=== PATIENT | female | born 1985 | race Caucasian/White ===

== ENCOUNTER 2019-09-25 19:42 | Emergency (ER) | payer OTHER, SELFPAY ==
--- OUTSIDE RECORDS SUMMARY | 2019-09-25 19:45 | XMS REPORT ---
:1985 Author Organization eClinicalWorks Care Team Providers Name Role Phone Ingrid Kamara Provider Role Unavailable Allergies No Known Allergies Problems Problem Type Condition Code Onset Dates Condition Status Problem Snoring R06.83 Active Problem Fatigue, unspecified type R53.83 Active Problem Morbid obesity E66.01 Active Problem Body mass index (BMI) of 40.0-44.9 Z68.41 Active in adult Problem control counseling Z30.09 Active Medications No Known Medications Results No Known Results Summary Purpose eClinicalWorks Submission
--- OUTSIDE RECORDS SUMMARY | 2019-09-25 19:45 | XMS REPORT ---
:1985 Author Organization [employer]Works Care Team Providers Name Role Phone Ingrid Kamara Provider Role Unavailable Allergies, Adverse Reactions, Alerts Substance Reaction Event Type N.K.D.A. Info Not Available Non Drug Allergy Problems Problem Type Condition Code Onset Dates Condition Status Problem Morbid obesity E66.01 Active Problem control counseling Z30.09 Active Problem Fatigue, unspecified type R53.83 Active Assessment Acute pharyngitis, unspecified J02.9 Active etiology Assessment URI, acute J06.9 Active Problem Snoring R06.83 Active Problem Skin lesion L98.9 Active Problem Hypercholesterolemia E78.00 Active Problem Vitamin D deficiency E55.9 Active Problem Dietary surveillance and counseling Z71.3 Active Problem Body mass index (BMI) of 40.0-44.9 Z68.41 Active in adult Problem Body mass index (BMI) of 45.0-49.9 Z68.42 Active in adult Problem Anemia, unspecified type D64.9 Active Medications Medication Code System Code Instructions Start Date End Date Status Dosage Augmentin [facility] [id number] 875-125 MG Orally April 26, May 06, Active 1 tablet every 12 hrs 2018 2018 Results Name Result Date Reference Range Unit Abnormality Flag STREP A RAPID ----Result Negative [id number] Summary Purpose eClinicalWorks Submission
--- OUTSIDE RECORDS SUMMARY | 2019-09-25 19:45 | XMS REPORT ---
:1985 Author Organization eClinicalWorks Care Team Providers Name Role Phone Ingrid Kamara Provider Role Unavailable Allergies, Adverse Reactions, Alerts Substance Reaction Event Type N.K.D.A. Info Not Available Non Drug Allergy Problems Problem Type Condition Code Onset Dates Condition Status Problem Snoring R06.83 Active Problem Fatigue, unspecified type R53.83 Active Problem Morbid obesity E66.01 Active Assessment Well adult exam Z00.00 Active Problem Body mass index (BMI) of 40.0-44.9 Z68.41 Active in adult Problem control counseling Z30.09 Active Medications No Known Medications Results No Known Results Summary Purpose [employer]Clinical[employer] Submission
--- OUTSIDE RECORDS SUMMARY | 2019-09-25 19:45 | XMS REPORT ---
:1985 Author Organization eClinicalWorks Care Team Providers Name Role Phone Anh Ingrid Provider Role Unavailable Allergies, Adverse Reactions, Alerts Substance Reaction Event Type N.K.D.A. Info Not Available Non Drug Allergy Problems Problem Type Condition Code Onset Dates Condition Status Problem Morbid obesity E66.01 Active Problem control counseling Z30.09 Active Problem Fatigue, unspecified type R53.83 Active Problem Skin lesion L98.9 Active Problem Hypercholesterolemia E78.00 Active Problem Vitamin D deficiency E55.9 Active Problem Dietary surveillance and counseling Z71.3 Active Problem Body mass index (BMI) of 40.0-44.9 Z68.41 Active in adult Problem Body mass index (BMI) of 45.0-49.9 Z68.42 Active in adult Problem Anemia, unspecified type D64.9 Active Assessment Body mass index (BMI) of 40.0-44.9 Z68.41 Active in adult Assessment Morbid obesity E66.01 Active Assessment Dietary surveillance and counseling Z71.3 Active Assessment Vitamin D deficiency E55.9 Active Assessment Anemia, unspecified type D64.9 Active Assessment Skin lesion L98.9 Active Assessment Hypercholesterolemia E78.00 Active Problem Snoring R06.83 Active Medications Medication Code Code Instructions Start End Status Dosage System Date Date Vitamin D [facility] [id number] UNIT December 20March Active 1 capsule (Ergocalcifero Orally Once per 2019 03, l) week 2019 Results No Known Results Summary Purpose eClinicalWorks Submission
--- OUTSIDE RECORDS SUMMARY | 2019-09-25 19:45 | XMS REPORT ---
:1985 Author Organization eClinicalWorks Care Team Providers Name Role Phone Ingrid Kamara Provider Role Unavailable Allergies No Known Allergies Problems Problem Type Condition Code Onset Dates Condition Status Problem Morbid obesity E66.01 Active Problem control counseling Z30.09 Active Problem Fatigue, unspecified type R53.83 Active Problem Snoring R06.83 Active Problem Skin lesion L98.9 Active Problem Hypercholesterolemia E78.00 Active Problem Vitamin D deficiency E55.9 Active Problem Dietary surveillance and counseling Z71.3 Active Problem Body mass index (BMI) of 40.0-44.9 Z68.41 Active in adult Problem Body mass index (BMI) of 45.0-49.9 Z68.42 Active in adult Problem Anemia, unspecified type D64.9 Active Medications No Known Medications Results No Known Results Summary Purpose eClinicalWorks Submission
--- OUTSIDE RECORDS SUMMARY | 2019-09-25 19:45 | XMS REPORT ---
:1985 Author Organization eClinicalWorks Care Team Providers Name Role Phone Ingrid Kamara Provider Role Unavailable Allergies, Adverse Reactions, Alerts Substance Reaction Event Type N.K.D.A. Info Not Available Non Drug Allergy Problems Problem Type Condition Code Onset Dates Condition Status Assessment Fatigue, unspecified type R53.83 Active Assessment Body mass index (BMI) of 40.0-44.9 Z68.41 Active in adult Assessment Snoring R06.83 Active Assessment control counseling Z30.09 Active Problem Snoring R06.83 Active Problem Fatigue, unspecified type R53.83 Active Problem Morbid obesity E66.01 Active Assessment Morbid obesity E66.01 Active Problem Body mass index (BMI) of 40.0-44.9 Z68.41 Active in adult Problem control counseling Z30.09 Active Medications No Known Medications Results Name Result Date Reference Range Unit Abnormality Flag TEST URINE ----RESULTS Negative [id number] Summary Purpose [facility] Submission
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
[2019-09-25] MEDS ORDERED: KETOROLAC 30 MG/ML INJ ONE (20:28)
[2019-09-25 21:04] VITALS: BP 111/60; TEMP 97.7; O2SAT 99
== END 2019-09-25 20:56 | disposition home or self-care (01) ==
LOC: ER 19:42
DX: M79.10 Myalgia, unspecified site (principal); V43.52XA Car driver injured in collision with other type car in traffic accident, initial encounter; Y93.89 Activity, other specified; Y92.410 Unspecified street and highway as the place of occurrence of the external cause
CPT/HCPCS: 96372; 99283

== ENCOUNTER 2023-04-30 16:16 | Emergency (ER) | payer SELFPAY ==
--- OUTSIDE RECORDS SUMMARY | 2023-04-30 16:21 | XMS REPORT | Continuity of Care Document ---
:[address] [facility] t Address [address] [place] [address] Care Team Providers Name Role Phone Radha Campos MD Primary Care Physician Ingrid Kamara Attending Clinician Unavailable Modesta Attending Clinician Unavailable GC_SWHAOMC_Black_D Attending Clinician Unavailable GC_SWHATBIC_Black_D Attending Clinician Unavailable Janelle Delarosa Attending Clinician Unavailable KYLE WINTER Attending Clinician Unavailable Kyle Winter MD Attending Clinician TAMMI LIU Attending Clinician Unavailable Tammi Liu MD Attending Clinician GC_SWHAOMC_Ball_C Attending Clinician Unavailable Doctor Unassigned, [place] Attending Clinician Unavailable Janelle Delarosa Attending Clinician [phone] Shay Dominguez DO Attending Clinician Jero Bain MD Attending Clinician Radha Campos MD Attending Clinician Chloe Almaraz RN Attending Clinician Unavailable Only, Ang Db Test Attending Clinician Unavailable Taz GARCIA, Kailash Attending Clinician KAILASH MORGAN Attending Clinician Unavailable IZZY JACOBS Attending Clinician Unavailable Lab, Adc Fam Pob I Attending Clinician Unavailable Rod BRIM STIFFENER, Jerson Attending Clinician JERSON VELASCO Attending Clinician Unavailable BERNABE CHAU Attending Clinician Unavailable KYLE WINTER Admitting Clinician Unavailable Modesta Admitting Clinician Unavailable GC_SWHAOMC_Black_D Admitting Clinician Unavailable GC_SWHATBIC_Black_D Admitting Clinician Unavailable Janelle Delarosa Admitting Clinician Unavailable Kyle Winter MD Admitting Clinician TAMMI LIU Admitting Clinician Unavailable Tammi Liu MD Admitting Clinician GC_SWHAOMC_Ball_C Admitting Clinician Unavailable BERNABE CHAU Admitting Clinician Unavailable Payers Payer Name Policy Type Policy Effective Date Expiration Date Sour ce Number [employer] [id number] 2022 OUT OF NETWORK 00:00:00 [employer] (EPO) [id number] 2021 00:00:00 [facility] [id number] 2020 MEDICARE 00:00:00 SUPPLEMENT MULTIPLAN GENERIC [id number] 2020 00:00:00 Blue [employer] and C1 [id number] 2018 Common S pirit Blue Shield 00:00:00 [facility] CIGNA GENERIC [id number] 2018 00:00:00 BCBS [facility] [id number] 2018 00:00:00 00:00:00 Problems Condition Condition Condition Status Onset Resolution Last Treating Co mments Source Name Details Category Date Date Treatment Clinician Date COVID-19 COVID-19 Disease Active Metho di 07-07 00:00: Hospita 00 l Morbid Morbid Disease Active Univers obesity obesity 1-15 [place] index 00 [place] dical of of Branch 40.0-49.9 40.0-49.9 Cholecysti Cholecysti Disease Active U nivers tis, acute tis, acute 1-14 it y of with with 00:00: [place] cholelithi cholelithi 00 Me dical asis asis Branch [id number] Morbid Problem Active Common obesity [facility] [id number] Dietary Problem Active Commo n surveillan Spirit ce and - [facility] counseling [facility] [id number] Other Problem Active Common chronic Spirit pain [facility] [id number] Pain in Problem Active Common right knee [facility] [id number] Vitamin D Problem Active Comm on deficiency [facility] [id number] Anemia, Problem Active Commo n unspecifie Spirit d type [facility] [id number] Internal Problem Active Com mon [id number] derangemen Spiri t t of right - [facility] knee [facility] Allergies, Adverse Reactions, Alerts Allergy Allergy Status Severity Reaction(s) Onset Inactive Treating Comm ents Source Name Type Date Date Clinician No Known DA Active U [facility] Allergie 2-27 [facility] s 00:00: Hosp[facility] 00 l of [place] NO KNOWN Drug Active Univers ALLERGIE Class ity of S [facility] Social History Social Habit Start Date Stop Date Quantity Comments Source ASSERTION 2022-03-30 University 00:00:00 [facility] Sex Assigned At [facility] Exposure to Not sure [facility] SARS-CoV-2 [place] [facility] (event) Branch Alcohol intake 2022-11-22 2022-11-22 Current [facility] 00:00:00 00:00:00 non-drinker of [facility] alcohol (finding) Branch Tobacco use and 2018-05-24 2018-05-24 Smokeless tobacco Un iversity of exposure 00:00:00 00:00:00 non-user [facility] Smoking Status Start Date Stop Date Source Unknown if ever smoked [facility] Never smoked tobacco [facility] Medications Ordered Filled Start Stop Current Ordering Indication Dosage Frequency Signature Comments Components Source Medication Medication Date Date Medication? Clinician (SIG) Name Name meloxicam Yes TAKE 1 Method i (MOBIC) 15 7-[address] mg tablet 00:00: MOUTH Hospita 00 DAILY l NEEDED FOR MODERATE PAIN. meloxicam Yes TAKE 1 Method i (MOBIC) 15 7-[address] mg tablet 00:00: MOUTH Hospita 00 DAILY l NEEDED FOR MODERATE PAIN. meloxicam 2021- No 15mg Q24H Take 1 Metho di (MOBIC) 15 6-23 07-20 tablet (15 st mg tablet 00:00: 00:00 mg total) Ho spita 00 :00 by mouth l daily as needed for moderate pain. meloxicam 2021- No 15mg Q24H Take 1 Metho di (MOBIC) 15 6-23 07-20 tablet (15 st mg tablet 00:00: 00:00 mg total) Ho spita 00 :00 by mouth l daily as needed for moderate pain. No known No No known Metho di medications 9-[address] 16:36: s Hospita 22 l Augmentin Augmentin 2019- No Ingrid 1 tablet Common 7-20 [facility] Spirit 00:00: 00:00 - [facility] 00 :00 [facility] Iron 325 Iron 325 No 1{table QD Iron 325 Common (65 Fe) MG (65 Fe) MG t} (65 Fe) MG Spirit - [facility] No known No Univers medications ity [facility] No known No Univers medications ity [facility] No known No Univers medications ity [facility] No known No Univers medications ity [facility] No known No Univers medications ity [facility] No known No Univers medications ity [facility] No [facility] No Univers medications ity [facility] No known No Univers medications ity [facility] No known No Univers medications ity [facility] No known No Univers medications ity [facility] No known No Univers medications ity [facility] doxylamine doxylamine No doxylamine [facility] 10 10 10 Medical mg-pyridoxi mg-pyridoxi mg-pyridox ne (vit B6) ne (vit B6) ine (vit 10 mg 10 mg B6) 10 mg tablet,bhavik tablet,bhavik tablet,del yed release yed release ayed TAKE 2 TAKE 2 release TABLETS BY TABLETS BY TAKE 2 MOUTH EVERY MOUTH EVERY TABLETS BY DAY AT DAY AT MOUTH BEDTIME BEDTIME EVERY DAY AT BEDTIME folic acid folic acid No folic acid [facility] 1 mg tablet 1 mg tablet 1 mg M edical TAKE 1 TAKE 1 tablet TABLET BY TABLET BY TAKE 1 MOUTH EVERY MOUTH EVERY TABLET BY DAY DAY MOUTH EVERY DAY doxylamine doxylamine No doxylamine [facility] 10 10 10 Medical mg-pyridoxi mg-pyridoxi mg-pyridox ne (vit B6) ne (vit B6) ine (vit 10 mg 10 mg B6) 10 mg tablet,bhavik tablet,bhavik tablet,del yed release yed release ayed TAKE 2 TAKE 2 release TABLETS BY TABLETS BY TAKE 2 MOUTH EVERY MOUTH EVERY TABLETS BY DAY AT DAY AT MOUTH BEDTIME BEDTIME EVERY DAY AT BEDTIME folic acid folic acid No folic acid [facility] 1 mg tablet 1 mg tablet 1 mg M edical TAKE 1 TAKE 1 tablet TABLET BY TABLET BY TAKE 1 MOUTH EVERY MOUTH EVERY TABLET BY DAY DAY MOUTH EVERY DAY doxylamine doxylamine No doxylamine [facility] 10 10 10 Medical mg-pyridoxi mg-pyridoxi mg-pyridox ne (vit B6) ne (vit B6) ine (vit 10 mg 10 mg B6) 10 mg tablet,bhavik tablet,bhavik tablet,del yed release yed release ayed TAKE 2 TAKE 2 release TABLETS BY TABLETS BY TAKE 2 MOUTH EVERY MOUTH EVERY TABLETS BY DAY AT DAY AT MOUTH BEDTIME BEDTIME EVERY DAY AT BEDTIME folic acid folic acid No folic acid [facility] 1 mg tablet 1 mg tablet 1 mg M edical TAKE 1 TAKE 1 tablet TABLET BY TABLET BY TAKE 1 MOUTH EVERY MOUTH EVERY TABLET BY DAY DAY MOUTH EVERY DAY doxylamine doxylamine No doxylamine [facility] 10 10 10 Medical mg-pyridoxi mg-pyridoxi mg-pyridox ne (vit B6) ne (vit B6) ine (vit 10 mg 10 mg B6) 10 mg tablet,bhavik tablet,bhavik tablet,del yed release yed release ayed TAKE 2 TAKE 2 release TABLETS BY TABLETS BY TAKE 2 MOUTH EVERY MOUTH EVERY TABLETS BY DAY AT DAY AT MOUTH BEDTIME BEDTIME EVERY DAY AT BEDTIME folic acid folic acid No folic acid [facility] 1 mg tablet 1 mg tablet 1 mg M edical TAKE 1 TAKE 1 tablet TABLET BY TABLET BY TAKE 1 MOUTH EVERY MOUTH EVERY TABLET BY DAY DAY MOUTH EVERY DAY amoxicillin amoxicillin No amoxicilli [facility] 875 mg 875 mg n 875 mg Medical tablet tablet tablet doxylamine doxylamine No doxylamine [facility] 10 10 10 Medical mg-pyridoxi mg-pyridoxi mg-pyridox ne (vit B6) ne (vit B6) ine (vit 10 mg 10 mg B6) 10 mg tablet,bhavik tablet,bhavik tablet,del yed release yed release ayed TAKE 2 TAKE 2 release TABLETS BY TABLETS BY TAKE 2 MOUTH EVERY MOUTH EVERY TABLETS BY DAY AT DAY AT MOUTH BEDTIME BEDTIME EVERY DAY AT BEDTIME folic acid folic acid No folic acid [facility] 1 mg tablet 1 mg tablet 1 mg M edical TAKE 1 TAKE 1 tablet TABLET BY TABLET BY TAKE 1 MOUTH EVERY MOUTH EVERY TABLET BY DAY DAY MOUTH EVERY DAY amoxicillin amoxicillin No amoxicilli [facility] 875 mg 875 mg n 875 mg Medical tablet tablet tablet doxylamine doxylamine No doxylamine [facility] 10 10 10 Medical mg-pyridoxi mg-pyridoxi mg-pyridox ne (vit B6) ne (vit B6) ine (vit 10 mg 10 mg B6) 10 mg tablet,bhavik tablet,bhavik tablet,del yed release yed release ayed TAKE 2 TAKE 2 release TABLETS BY TABLETS BY TAKE 2 MOUTH EVERY MOUTH EVERY TABLETS BY DAY AT DAY AT MOUTH BEDTIME BEDTIME EVERY DAY AT BEDTIME folic acid folic acid No folic acid [facility] 1 mg tablet 1 mg tablet 1 mg M edical TAKE 1 TAKE 1 tablet TABLET BY TABLET BY TAKE 1 MOUTH EVERY MOUTH EVERY TABLET BY DAY DAY MOUTH EVERY DAY amoxicillin amoxicillin No amoxicilli [facility] 875 mg 875 mg n 875 mg Medical tablet tablet tablet doxylamine doxylamine No doxylamine [facility] 10 10 10 Medical mg-pyridoxi mg-pyridoxi mg-pyridox ne (vit B6) ne (vit B6) ine (vit 10 mg 10 mg B6) 10 mg tablet,bhavik tablet,bhavik tablet,del yed release yed release ayed TAKE 2 TAKE 2 release TABLETS BY TABLETS BY TAKE 2 MOUTH EVERY MOUTH EVERY TABLETS BY DAY AT DAY AT MOUTH BEDTIME BEDTIME EVERY DAY AT BEDTIME folic acid folic acid No folic acid [facility] 1 mg tablet 1 mg tablet 1 mg M edical TAKE 1 TAKE 1 tablet TABLET BY TABLET BY TAKE 1 MOUTH EVERY MOUTH EVERY TABLET BY DAY DAY MOUTH EVERY DAY amoxicillin amoxicillin No amoxicilli [facility] 875 mg 875 mg n 875 mg Medical tablet tablet tablet doxylamine doxylamine No doxylamine [facility] 10 10 10 Medical mg-pyridoxi mg-pyridoxi mg-pyridox ne (vit B6) ne (vit B6) ine (vit 10 mg 10 mg B6) 10 mg tablet,bhavik tablet,bhavik tablet,del yed release yed release ayed TAKE 2 TAKE 2 release TABLETS BY TABLETS BY TAKE 2 MOUTH EVERY MOUTH EVERY TABLETS BY DAY AT DAY AT MOUTH BEDTIME BEDTIME EVERY DAY AT BEDTIME ferrous ferrous No ferrous [facility] sulfate 325 sulfate 325 sulfate Medical mg (65 mg mg (65 mg 325 mg (65 iron) iron) mg iron) tablet TAKE tablet TAKE tablet 1 TABLET BY 1 TABLET BY TAKE 1 MOUTH EVERY MOUTH EVERY TABLET BY DAY DAY MOUTH EVERY DAY folic acid folic acid No folic acid [facility] 1 mg tablet 1 mg tablet 1 mg M edical TAKE 1 TAKE 1 tablet TABLET BY TABLET BY TAKE 1 MOUTH EVERY MOUTH EVERY TABLET BY DAY DAY MOUTH EVERY DAY hydrocodone hydrocodone No hydrocodon [facility] 5 5 e 5 Medical mg-acetamin mg-acetamin mg-acetami ophen 325 ophen 325 nophen 325 mg tablet mg tablet mg tablet ibuprofen ibuprofen No ibuprofen [facility] 600 mg 600 mg 600 mg Medical tablet tablet tablet labetalol labetalol No labetalol [facility] 200 mg 200 mg 200 mg Medical tablet tablet tablet ferrous ferrous No ferrous [facility] sulfate 325 sulfate 325 sulfate Medical mg (65 mg mg (65 mg 325 mg (65 iron) iron) mg iron) tablet TAKE tablet TAKE tablet 1 TABLET BY 1 TABLET BY TAKE 1 MOUTH EVERY MOUTH EVERY TABLET BY DAY DAY MOUTH EVERY DAY ibuprofen ibuprofen No 1 Q6H ibuprofen [facility] 600 mg 600 mg 600 mg Medical tablet Take tablet Take tablet 1 tablet 1 tablet Take 1 every 6 every 6 tablet hours by hours by every 6 oral route oral route hours by as needed. as needed. oral route as needed. labetalol labetalol No labetalol [facility] 200 mg 200 mg 200 mg Medical tablet tablet tablet doxylamine doxylamine No doxylamine [facility] 10 10 10 Medical mg-pyridoxi mg-pyridoxi mg-pyridox ne (vit B6) ne (vit B6) ine (vit 10 mg 10 mg B6) 10 mg tablet,bhavik tablet,bhavik tablet,del yed release yed release ayed TAKE 2 TAKE 2 release TABLETS BY TABLETS BY TAKE 2 MOUTH EVERY MOUTH EVERY TABLETS BY DAY AT DAY AT MOUTH BEDTIME BEDTIME EVERY DAY AT BEDTIME folic acid folic acid No folic acid [facility] 1 mg tablet 1 mg tablet 1 mg M edical TAKE 1 TAKE 1 tablet TABLET BY TABLET BY TAKE 1 MOUTH EVERY MOUTH EVERY TABLET BY DAY DAY MOUTH EVERY DAY doxylamine doxylamine No doxylamine [facility] 10 10 10 Medical mg-pyridoxi mg-pyridoxi mg-pyridox ne (vit B6) ne (vit B6) ine (vit 10 mg 10 mg B6) 10 mg tablet,bhavik tablet,bhavik tablet,del yed release yed release ayed TAKE 2 TAKE 2 release TABLETS BY TABLETS BY TAKE 2 MOUTH EVERY MOUTH EVERY TABLETS BY DAY AT DAY AT MOUTH BEDTIME BEDTIME EVERY DAY AT BEDTIME folic acid folic acid No folic acid [facility] 1 mg tablet 1 mg tablet 1 mg M edical TAKE 1 TAKE 1 tablet TABLET BY TABLET BY TAKE 1 MOUTH EVERY MOUTH EVERY TABLET BY DAY DAY MOUTH EVERY DAY Diclegis 10 Diclegis 10 No 2 Q1D Diclegis [facility] mg-10 mg mg-10 mg 10 mg-10 Med ical tablet,bhavik tablet,bhavik mg yed release yed release tablet,del Take 2 Take 2 ayed tablets tablets release every day every day Take 2 by oral by oral tablets route at route at every day bedtime. bedtime. by oral route at bedtime. folic acid folic acid No 1 Q1D folic acid [facility] 1 mg tablet 1 mg tablet 1 mg M edical Take 1 Take 1 tablet tablet tablet Take 1 every day every day tablet by oral by oral every day route. route. by oral route. doxylamine doxylamine No doxylamine [facility] 10 10 10 Medical mg-pyridoxi mg-pyridoxi mg-pyridox ne (vit B6) ne (vit B6) ine (vit 10 mg 10 mg B6) 10 mg tablet,bhavik tablet,bhavik tablet,del yed release yed release ayed TAKE 2 TAKE 2 release TABLETS BY TABLETS BY TAKE 2 MOUTH EVERY MOUTH EVERY TABLETS BY DAY AT DAY AT MOUTH BEDTIME BEDTIME EVERY DAY AT BEDTIME folic acid folic acid No folic acid [facility] 1 mg tablet 1 mg tablet 1 mg M edical TAKE 1 TAKE 1 tablet TABLET BY TABLET BY TAKE 1 MOUTH EVERY MOUTH EVERY TABLET BY DAY DAY MOUTH EVERY DAY Immunizations Ordered Filled Immunization Date Status Comments [facility] e Immunization Name Name Tdap Tdap 2022-11-16 Completed [facility] 00:00:00 Tdap Tdap 2022-11-16 Completed [facility] 00:00:00 Tdap Tdap 2022-11-16 Completed [facility] 00:00:00 Tdap Tdap 2022-11-16 Completed [facility] 00:00:00 influenza, influenza, 2022-09-16 Completed [facility] seasonal, seasonal, 00:00:00 injectable injectable influenza, influenza, 2022-09-16 Completed [facility] seasonal, seasonal, 00:00:00 injectable injectable influenza, influenza, 2022-09-16 Completed [facility] seasonal, seasonal, 00:00:00 injectable injectable influenza, influenza, 2022-09-16 Completed [facility] seasonal, seasonal, 00:00:00 injectable injectable influenza, influenza, 2022-09-16 Completed [facility] seasonal, seasonal, 00:00:00 injectable injectable influenza, influenza, 2022-09-16 Completed [facility] seasonal, seasonal, 00:00:00 injectable injectable influenza, influenza, 2022-09-16 Completed [facility] seasonal, seasonal, 00:00:00 injectable injectable influenza, influenza, 2022-09-16 Completed [facility] seasonal, seasonal, 00:00:00 injectable injectable COVID-19 COVID-19 2021-01-30 Completed [facility] (SARS-COV-2) (SARS-COV-2) 00:00:00 vaccine, vaccine, unspecified unspecified COVID-19 COVID-19 2021-01-30 Completed [facility] (SARS-COV-2) (SARS-COV-2) 00:00:00 vaccine, vaccine, unspecified unspecified COVID-19 COVID-19 2021-01-30 Completed [facility] (SARS-COV-2) (SARS-COV-2) 00:00:00 vaccine, vaccine, unspecified unspecified COVID-19 COVID-19 2021-01-30 Completed [facility] (SARS-COV-2) (SARS-COV-2) 00:00:00 vaccine, vaccine, unspecified unspecified COVID-19 COVID-19 2021-01-30 Completed [facility] (SARS-COV-2) (SARS-COV-2) 00:00:00 vaccine, vaccine, unspecified unspecified COVID-19 COVID-19 2021-01-30 Completed [facility] (SARS-COV-2) (SARS-COV-2) 00:00:00 vaccine, vaccine, unspecified unspecified COVID-19 COVID-19 2021-01-30 Completed [facility] (SARS-COV-2) (SARS-COV-2) 00:00:00 vaccine, vaccine, unspecified unspecified COVID-19 COVID-19 2021-01-30 Completed [facility] (SARS-COV-2) (SARS-COV-2) 00:00:00 vaccine, vaccine, unspecified unspecified COVID-19 COVID-19 2021-01-30 Completed [facility] (SARS-COV-2) (SARS-COV-2) 00:00:00 vaccine, vaccine, unspecified unspecified COVID-19 COVID-19 2021-01-30 Completed [facility] (SARS-COV-2) (SARS-COV-2) 00:00:00 vaccine, vaccine, unspecified unspecified COVID-19 COVID-19 2021-01-30 Completed [facility] (SARS-COV-2) (SARS-COV-2) 00:00:00 vaccine, vaccine, unspecified unspecified COVID-19 COVID-19 2021-01-30 Completed [facility] (SARS-COV-2) (SARS-COV-2) 00:00:00 vaccine, vaccine, unspecified unspecified COVID-19 COVID-19 2021-01-30 Completed [facility] (SARS-COV-2) (SARS-COV-2) 00:00:00 vaccine, vaccine, unspecified unspecified SARS-COV-2 COVID-19 2021-01-10 Completed Unive rsity of PFIZER VACCINE 00:00:00 [facility] SARS-COV-2 COVID-19 2021-01-10 Completed Unive rsity of PFIZER VACCINE 00:00:00 [facility] SARS-COV-2 COVID-19 2021-01-10 Completed Unive rsity of PFIZER VACCINE 00:00:00 [facility] SARS-COV-2 COVID-19 2021-01-10 Completed Unive rsity of PFIZER VACCINE 00:00:00 [facility] SARS-COV-2 COVID-19 2021-01-10 Completed Unive rsity of PFIZER VACCINE 00:00:00 [facility] SARS-COV-2 COVID-19 2021-01-10 Completed Unive rsity of PFIZER VACCINE 00:00:00 [facility] SARS-COV-2 COVID-19 2021-01-10 Completed Unive rsity of PFIZER VACCINE 00:00:00 [facility] SARS-COV-2 COVID-19 2021-01-10 Completed Unive rsity of PFIZER VACCINE 00:00:00 [facility] COVID-19 COVID-19 2020-12-30 Completed [facility] (SARS-COV-2) (SARS-COV-2) 00:00:00 vaccine, vaccine, unspecified unspecified COVID-19 COVID-19 2020-12-30 Completed [facility] (SARS-COV-2) (SARS-COV-2) 00:00:00 vaccine, vaccine, unspecified unspecified COVID-19 COVID-19 2020-12-30 Completed [facility] (SARS-COV-2) (SARS-COV-2) 00:00:00 vaccine, vaccine, unspecified unspecified COVID-19 COVID-19 2020-12-30 Completed [facility] (SARS-COV-2) (SARS-COV-2) 00:00:00 vaccine, vaccine, unspecified unspecified COVID-19 COVID-19 2020-12-30 Completed [facility] (SARS-COV-2) (SARS-COV-2) 00:00:00 vaccine, vaccine, unspecified unspecified COVID-19 COVID-19 2020-12-30 Completed [facility] (SARS-COV-2) (SARS-COV-2) 00:00:00 vaccine, vaccine, unspecified unspecified COVID-19 COVID-19 2020-12-30 Completed [facility] (SARS-COV-2) (SARS-COV-2) 00:00:00 vaccine, vaccine, unspecified unspecified COVID-19 COVID-19 2020-12-30 Completed [facility] (SARS-COV-2) (SARS-COV-2) 00:00:00 vaccine, vaccine, unspecified unspecified COVID-19 COVID-19 2020-12-30 Completed [facility] (SARS-COV-2) (SARS-COV-2) 00:00:00 vaccine, vaccine, unspecified unspecified COVID-19 COVID-19 2020-12-30 Completed [facility] (SARS-COV-2) (SARS-COV-2) 00:00:00 vaccine, vaccine, unspecified unspecified COVID-19 COVID-19 2020-12-30 Completed [facility] (SARS-COV-2) (SARS-COV-2) 00:00:00 vaccine, vaccine, unspecified unspecified COVID-19 COVID-19 2020-12-30 Completed [facility] (SARS-COV-2) (SARS-COV-2) 00:00:00 vaccine, vaccine, unspecified unspecified COVID-19 COVID-19 2020-12-30 Completed [facility] (SARS-COV-2) (SARS-COV-2) 00:00:00 vaccine, vaccine, unspecified unspecified SARS-COV-2 COVID-19 2020-12-17 Completed Unive rsity of PFIZER VACCINE 00:00:00 [facility] SARS-COV-2 COVID-19 2020-12-17 Completed Unive rsity of PFIZER VACCINE 00:00:00 [facility] SARS-COV-2 COVID-19 2020-12-17 Completed Unive rsity of PFIZER VACCINE 00:00:00 [facility] SARS-COV-2 COVID-19 2020-12-17 Completed Unive rsity of PFIZER VACCINE 00:00:00 [facility] SARS-COV-2 COVID-19 2020-12-17 Completed Unive rsity of PFIZER VACCINE 00:00:00 [facility] SARS-COV-2 COVID-19 2020-12-17 Completed Unive rsity of PFIZER VACCINE 00:00:00 [facility] SARS-COV-2 COVID-19 2020-12-17 Completed Unive rsity of PFIZER VACCINE 00:00:00 [facility] SARS-COV-2 COVID-19 2020-12-17 Completed Unive rsity of PFIZER VACCINE 00:00:00 [facility] Vital Signs Vital Name Observation Time Observation Value Comments Source BP Diastolic 2023-01-21 00:00:00 62 mm[Hg] [facility] Height 2023-01-21 00:00:00 63 [in_i] [facility] BMI (Body Mass 2023-01-21 00:00:00 38.3 kg/m2 [facility] Medical Index) BP Systolic 2023-01-21 00:00:00 130 mm[Hg] [facility] Body Weight 2023-01-21 00:00:00 216 [lb_av] [facility] BP Diastolic 2022-12-24 00:00:00 62 mm[Hg] [facility] Height 2022-12-24 00:00:00 63 [in_i] [facility] BMI (Body Mass 2022-12-24 00:00:00 43.4 kg/m2 [facility] Medical Index) BP Systolic 2022-12-24 00:00:00 130 mm[Hg] [facility] Body Weight 2022-12-24 00:00:00 245 [lb_av] [facility] BP Diastolic 2022-12-14 00:00:00 86 mm[Hg] [facility] BP Systolic 2022-12-14 00:00:00 136 mm[Hg] [facility] Body Weight 2022-12-14 00:00:00 265 [lb_av] [facility] BP Diastolic 2022-12-07 00:00:00 70 mm[Hg] [facility] BP Systolic 2022-12-07 00:00:00 126 mm[Hg] [facility] Body Weight 2022-12-07 00:00:00 252 [lb_av] [facility] Systolic blood 2022-12-01 11:45:00 124 mm[Hg] Univer [facility] of [facility] Diastolic blood 2022-12-01 11:45:00 72 mm[Hg] Unive rsity [facility] Heart rate 2022-12-01 11:45:00 137 /min [facility] Body temperature 2022-12-01 11:45:00 36.5 [place] [facility] 2022-12-01 11:45:00 18 /min [facility] Body height 2022-12-01 11:45:00 160 cm [facility] Body weight 2022-12-01 11:45:[address] [facility] BMI 2022-12-01 11:45:00 44.99 kg/m2 [facility] Oxygen saturation in 2022-12-01 11:45:00 100 /min [facility] Arterial blood by [facility] Pulse oximetry Branch BP Diastolic 2022-11-30 00:00:00 80 mm[Hg] [facility] BP Systolic 2022-11-30 00:00:00 136 mm[Hg] [facility] Body Weight 2022-11-30 00:00:00 249 [lb_av] [facility] Heart rate 2022-11-23 08:00:00 105 /min [facility] Oxygen saturation in 2022-11-23 08:00:00 97 /min [facility] Arterial blood by [facility] Pulse oximetry Branch Systolic blood 2022-11-23 04:50:00 136 mm[Hg] Univer sity of pressure [facility] Diastolic blood 2022-11-23 04:50:00 78 mm[Hg] Unive rsity of [facility] Body temperature 2022-11-23 04:50:00 36.5 [place] [facility] Respiratory rate 2022-11-23 04:50:00 18 /min [facility] [place] [facility] Body height 2022-11-23 04:50:00 160 cm [facility] Body weight 2022-11-23 04:50:00 115.985 kg [facility] BMI 2022-11-23 04:50:00 45.30 kg/m2 [facility] BP Diastolic 2022-11-23 00:00:00 78 mm[Hg] [facility] BP Systolic 2022-11-23 00:00:00 132 mm[Hg] [facility] Body Weight 2022-11-23 00:00:00 255 [lb_av] [facility] Body Weight 2022-11-06 00:00:00 248 [lb_av] [facility] BP Diastolic 2022-10-15 00:00:00 78 mm[Hg] [facility] Height 2022-10-15 00:00:00 63 [in_i] [facility] BP Systolic 2022-10-15 00:00:00 128 mm[Hg] [facility] Body Weight 2022-10-15 00:00:00 244 [lb_av] [facility] BP Diastolic 2022-09-17 00:00:00 82 mm[Hg] [facility] Height 2022-09-17 00:00:00 63 [in_i] [facility] BMI (Body Mass 2022-09-17 00:00:00 45.2 kg/m2 [facility] Medical Index) BP Systolic 2022-09-17 00:00:00 120 mm[Hg] [facility] Body Weight 2022-09-17 00:00:00 255 [lb_av] [facility] BP Diastolic 2022-08-05 00:00:00 84 mm[Hg] [facility] Height 2022-08-05 00:00:00 63 [in_i] [facility] BMI (Body Mass 2022-08-05 00:00:00 43.8 kg/m2 [facility] Medical Index) BP Systolic 2022-08-05 00:00:00 124 mm[Hg] [facility] Body Weight 2022-08-05 00:00:00 247 [lb_av] [facility] BP Diastolic 2022 00:00:00 84 mm[Hg] [facility] Height 2022 00:00:00 63 [in_i] [facility] BMI (Body Mass 2022 00:00:00 43.8 kg/m2 [facility] Medical Index) BP Systolic 2022 00:00:00 126 mm[Hg] [facility] Body Weight 2022 00:00:00 247 [lb_av] [facility] BP Diastolic 2022-06-04 00:00:00 82 mm[Hg] [facility] Height 2022-06-04 00:00:00 63 [in_i] [facility] BMI (Body Mass 2022-06-04 00:00:00 43.4 kg/m2 [facility]) BP Systolic 2022-06-04 00:00:00 126 mm[Hg] [facility] Body Weight 2022-06-04 00:00:00 245 [lb_av] [facility] BP Diastolic 2022-05-14 00:00:00 86 mm[Hg] [facility] Height 2022-05-14 00:00:00 63 [in_i] [facility] BMI (Body Mass 2022-05-14 00:00:00 43.2 kg/m2 [facility] Medical Index) BP Systolic 2022-05-14 00:00:00 124 mm[Hg] [facility] Body Weight 2022-05-14 00:00:00 244 [lb_av] [facility] height 2020-09-05 09:00:00 63.00 [in_i] [facility] weight 2020-09-05 09:00:00 218.2 [lb_av] [facility] temperature 2020-09-05 09:00:00 97.2 [degF] [facility] bmi 2020-09-05 09:00:00 38.65 kg/m2 [facility] oximetry 2020-09-05 09:00:00 98 % [facility] respiratory rate 2020-09-05 09:00:00 18 /min Comm on [facility] blood pressure 2020-09-05 09:00:00 114 mm[Hg] [facility] - systolic [facility] blood pressure 2020-09-05 09:00:00 65 mm[Hg] [facility] - diastolic [facility] Systolic blood 2021-07-07 22:57:09 116 mm[Hg] [facility] pressure Diastolic blood 2021-07-07 22:57:09 77 mm[Hg] [facility] pressure Heart rate 2021-07-07 22:57:09 106 /min [facility] Body temperature 2021-07-07 22:57:09 37.61 [facility] Respiratory rate 2021-07-07 22:57:09 18 /min [facility] Oxygen saturation in 2021-07-07 22:57:09 98 /min [facility] Arterial blood by Pulse oximetry Body height 2021-07-07 21:34:00 162.6 cm [facility] Body weight 2021-07-07 21:34:00 108.863 kg [facility] BMI 2021-07-07 21:34:00 41.20 kg/m2 [facility] Procedures Procedure Date / Time Performing Clinician Source Performed [id number] 2022-12-16 00:00:00 [facility] [id number] 2022-12-16 00:00:00 [facility] [id number] 2022-12-16 00:00:00 [facility] ASSIGNMENT OF BENEFITS 2022-12-01 11:31:23 Doctor Unassigned, [facility] NOTICE OF PRIVACY 2022-12-01 11:17:43 Doctor Unassigned, [facility] CONSENT/REFUSAL FOR 2022-12-01 11:17:29 Doctor Unassigned, [facility] DIAGNOSIS AND TREATMENT [facility] ASSIGNMENT OF BENEFITS 2022-11-23 04:24:26 Doctor Unassigned, [facility] NOTICE OF PRIVACY 2022-11-23 04:23:35 Doctor Unassigned, [facility] CONSENT/REFUSAL FOR 2022-11-23 04:23:20 Doctor Unassbasil, [facility] DIAGNOSIS AND TREATMENT [facility] ABDOMINAL ULTRASOUND OF 2022-09-17 00:00:00 [facility] UTERUS (GREATER OR EQUAL TO 14 WEEKS 0 DAYS) SINGLE OR FIRST FETUS US, obstetric, 2022-08-05 00:00:00 [facility] maternal evaluation + anatomy US, obstetric, 2022 00:00:00 [facility] maternal evaluation + anatomy US, transvaginal 2022-05-14 00:00:00 [facility] XR FOOT 3+ VW LEFT 2022-04-09 15:19:18 Shay Dominguez [facility] CONSENT/REFUSAL FOR 2021-06-12 18:43:46 Doctor Unassigned, [facility] DIAGNOSIS AND TREATMENT [facility] ASSIGNMENT OF BENEFITS 2021-06-12 18:43:33 [facility] Cholecyst[facility] Medical Tonsillectomy [facility] Plan of Care Planned Activity Planned Date Details Comments Source Diagnostic Test 2023-01-21 Weight of 24 hour [facility] Medical Pending 00:00:00 Specimen [code = 3153-4] Diagnostic Test 2023-01-21 Cytomegalovirus Ab [facility] Pending 00:00:00 [Titer] in Serum or Plasma by Latex agglutination [code = 5121-9] Future Scheduled 2022-11-22 Hepatitis C screening [facility] 22:24:23 (procedure) [code = Hospital 029708396] Future Scheduled 2022-11-22 Screening for malignant [facility] 22:24:23 neoplasm of cervix Hospital (procedure) [code = 209435830] Future Scheduled 2022-11-22 COVID-19 VACCINE (3 - [facility] 22:24:23 Booster for Pfizer Hospital series) [code = COVID-19 VACCINE (3 - Booster for Pfizer series)] Future Scheduled 2022-11-22 INFLUENZA VACCINE [code [facility] 22:24:23 = INFLUENZA VACCINE] Hospita Future Scheduled 2022-11-22 Hepatitis C screening [facility] 22:24:23 (procedure) [code = Hospital 905647409] Future Scheduled 2022-11-22 Screening for malignant [facility] Test 22:24:23 neoplasm of cervix Hospital (procedure) [code = 286399488] Future Scheduled 2022-11-22 COVID-19 VACCINE (3 - [facility] 22:24:23 Booster for Pfizer Hospital series) [code = COVID-19 VACCINE (3 - Booster for Pfizer series)] Future Scheduled 2022-11-22 INFLUENZA VACCINE [code [facility] 22:24:23 = INFLUENZA VACCINE] Hospita Future Scheduled 2021-11-18 Screening for malignant [facility] Test 16:39:57 neoplasm of cervix Hospital (procedure) [code = 845759656] Future Scheduled 2021-11-18 INFLUENZA VACCINE [code [facility] 16:39:57 = INFLUENZA VACCINE] Hospita Future Scheduled 2021-11-18 COVID-19 VACCINE (3 - [facility] 16:39:57 Booster for Pfizer Hospital series) [code = COVID-19 VACCINE (3 - Booster for Pfizer series)] Future Appointment 2024-01-22 Janelle Delarosa, [address] [facility] 00:00:00 Alie , [place] [address] Encounters Start End Encounter Admission Attending Care Care Encounter Source Date/Time Date/Time Type Type Clinicians Facility Department ID 2022-12-01 Outpatient P [facility] WILI [id number] Univers 07:14:37 ity of [facility] 2022-04-01 Outpatient STLMLC STLMLC [id number] Common 14:35:00 [id number] [facility] 2021-11-12 Outpatient STLMLC STLMLC [id number] Common 12:06:25 90040 [facility] 2021-11-12 Outpatient Millender, STLMLC STLMLC [id number] Common 12:06:04 Ingrid 26655 [facility] 2021-11-12 Outpatient Millender, STLMLC STLMLC [id number] Common 11:53:04 Ingrid 56797 [facility] 2021-11-12 Outpatient Millender, STLMLC STLMLC [id number] Common 11:52:38 Ingrid 56591 [facility] 2021-11-12 Outpatient Millender, STLMLC STLMLC [id number] Common 11:06:42 Ingrid 62513 [facility] 2023-03-08 2023-03-08 Outpatient FOG_Burke_R AOSM AOSM [id number] Jacy 00:00:00 00:00:00 Dilcia [id number] Ortho pe dic [facility] e 2023-01-29 2023-01-29 Outpatient [facility]_ PRIV PRIV 244 [id number] [facility] 00:00:00 00:00:00 Black_D [id number] Medica l 2023-01-21 2023-01-21 Outpatient [facility]_ PRIV PRIV 244 [id number] [facility] 00:00:00 00:00:00 Black_D [id number] Medica l 2023-01-21 2023-01-21 Outpatient [facility]_ PRIV PRIV 244 [id number] [facility] 00:00:00 00:00:00 Black_D [id number] Medica l 2023-01-21 2023-01-21 Outpatient [facility]_ PRIV PRIV 244 [id number] [facility] 00:00:00 00:00:00 Black_D [id number] Medica l 2023-01-21 2023-01-21 Outpatient [facility]_ PRIV PRIV 244 [id number] [facility] 00:00:00 00:00:00 Black_D [id number] Medica l 2023-01-21 2023-01-21 Outpatient [facility]_ PRIV PRIV 244 [id number] [facility] 00:00:00 00:00:00 Black_D [id number] Medica l 2023-01-21 2023-01-21 Outpatient [facility]_ PRIV PRIV 244 [id number] [facility] 00:00:00 00:00:00 Black_D [id number] Medica l 2023-01-21 2023-01-21 Janelle [facility] 06 [facility] 00:00:00 00:00:00 [facility] al MD [place]: [facility]_ [address] [facility] [place] [place], [place] [address] , Ph. 2023-01-20 2023-01-20 Outpatient [facility]_ PRIV PRIV 244 [id number] [facility] 00:00:00 00:00:00 Black_D [id number] Medica l 2023-01-07 2023-01-07 Outpatient GC_SWHATBIC PRIV PRIV 244 [id number] [facility] 00:00:00 00:00:00 _Black_D [id number] Medic al 2023-01-01 2023-01-01 Outpatient [facility]_ PRIV PRIV 244 [id number] [facility] 00:00:00 00:00:00 Black_D [id number] Medica l 2023-01-01 2023-01-01 Outpatient [facility]_ PRIV PRIV 244 [id number] [facility] 00:00:00 00:00:00 Black_D [id number] Medica l 2022-12-24 2022-12-24 Outpatient [facility]_ PRIV PRIV 244 [id number] [facility] 00:00:00 00:00:00 Black_D [id number] Medica l 2022-12-24 2022-12-24 Janelle [facility] 09 [facility] 00:00:00 00:00:00 [facility] - Medic remy Delarosa MD: [facility]_ [address] [facility] [place], [place] [address] , Ph. 2022-12-15 2022-12-20 Inpatient EM Janelle Delarosa [facility] OBPP F000 [id number] [facility] 23:30:00 12:34:00 56 [facility] 2022-12-18 2022-12-18 Outpatient [facility]_ PRIV PRIV 244 [id number] [facility] 00:00:00 00:00:00 Black_D [id number] Medica l 2022-12-14 2022-12-14 Emergency EM Janelle Delarosa [facility] MARYANNE F000 [id number] [facility] 16:56:00 19:45:00 07 [facility] 2022-12-14 2022-12-14 Outpatient [facility]_ PRIV PRIV 244 [id number] [facility] 00:00:00 00:00:00 Black_D [id number] Medica l 2022-12-14 2022-12-14 Outpatient GC_[facility]_ PRIV PRIV 244 [id number] [facility] 00:00:00 00:00:00 Black_D [id number] Medica l 2022-12-14 2022-12-14 Outpatient GC_[facility]_ PRIV PRIV 244 [id number] [facility] 00:00:00 00:00:00 Black_D [id number] Medica l 2022-12-14 2022-12-14 Janelle [facility] 27 [facility] 00:00:00 00:00:00 [facility] remy Delarosa MD: GC_[facility]_ [address] [facility], [address], [place] [address] , Ph. 2022-12-13 2022-12-13 Outpatient [facility]_ PRIV PRIV 244 [id number] [facility] 00:00:00 00:00:00 Black_D [id number] Medica l 2022-12-10 2022-12-10 Outpatient GC_SWHATBIC PRIV PRIV 244 [id number] [facility] 00:00:00 00:00:00 _Black_D [id number] Medic al 2022-12-07 2022-12-07 Outpatient [facility]_ PRIV PRIV 244 [id number] [facility] 00:00:00 00:00:00 Black_D [id number] Medica l 2022-12-07 2022-12-07 Outpatient [facility]_ PRIV PRIV 244 [id number] [facility] 00:00:00 00:00:00 Black_D [id number] Medica l 2022-12-07 2022-12-07 Janelle [facility] 00:00:00 00:00:00 [facility] - Medic al MD [place]: GC_[facility]_ [address] [facility] [place], [address], [place] [address] , Ph. 2022-12-02 2022-12-02 Outpatient GC_[facility]_ PRIV PRIV 244 [id number] [facility] 00:00:00 00:00:00 Black_D [id number] Medica l 2022-12-01 2022-12-01 Outpatient P MOY KYLE [facility] WILI [id number] Univers 05:37:00 06:52:00 ity of [facility] 2022-12-01 2022-12-01 [facility] 1.2.840.114 [id number] Univers 05:37:00 06:52:00 Encounter Raúl JACOB 350.1.13.10 ity [facility] 4.2.7.2.686 [facility] [id number] [place] [address] Branch 2022-11-30 2022-11-30 Outpatient [facility]_ PRIV PRIV 244 [id number] [facility] 00:00:00 00:00:00 Black_D [id number] Medica l 2022-11-30 2022-11-30 Janelle [facility] 13 [facility] 00:00:00 00:00:00 [facility] - Medic al Black, MD: GC_[facility]_ [address], [address], [place] [address] , Ph. 2022-11-29 2022-11-29 Outpatient [facility]_ PRIV PRIV 244 [id number] [facility] 00:00:00 00:00:00 [place] [id number] Medica l 2022-11-27 2022-11-27 Outpatient [facility]_ PRIV PRIV 244 [id number] [facility] 00:00:00 00:00:00 [place]_Omar [id number] Medica l 2022-11-22 2022-11-23 Outpatient X ADUM, [facility] WILI [id number] Univers 22:28:00 02:50:[address] [facility] 2022-11-22 2022-11-23 [facility] 1.2.213.280 [id number] Univers 22:28:00 02:50:00 Tammi JACOB 350.1.13.10 ity [facility] 4.2.7.2.686 [facility] [id number] [place] [address] Branch 2022-11-23 2022-11-23 Outpatient [facility]_ PRIV PRIV 244 [id number] [facility] 00:00:00 00:00:00 Black_Omar [id number] Medica l 2022-11-23 2022-11-23 Janelle [facility] 06 [facility] 00:00:00 00:00:00 [facility] - Medic remy Delarosa MD: GC_[facility]_ [address], [address], [place] [address] , Ph. 2022-11-22 2022-11-22 Outpatient [facility]_ PRIV PRIV 244 [id number] [facility] 00:00:00 00:00:00 Rafael_C [id number] Medica l 2022-11-22 2022-11-22 Orders Doctor ORTEGA 1.2.840.114 [id number] Univers 00:00:00 00:00:00 Only Unassigned, RENE 350.1.13.10 ity [facility] 4.2.7.2.686 Tonny as [id number] Medi qiana 009 Branch 2022-11-20 2022-11-20 Outpatient [facility]_ PRIV PRIV 244 [id number] [facility] 00:00:00 00:00:00 Ball_C [id number] Medica l 2022-11-17 2022-11-17 Outpatient [facility]_ PRIV PRIV 244 [id number] [facility] 00:00:00 00:00:00 Ball_C [id number] Medica l 2022-11-12 2022-11-12 Outpatient [facility] PRIV PRIV 244 [id number] [facility] 00:00:00 00:00:00 _Martin [id number] Medic al 2022-11-11 2022-11-11 Outpatient [facility]_ PRIV PRIV 244 [id number] [facility] 00:00:00 00:00:00 Ball_C [id number] Medica l 2022-11-06 2022-11-06 Janelle [facility] 20 [facility] 00:00:00 00:00:00 [facility] al MD [place]: GC_[facility]_ [address] [facility], [address], [place] [address] , Ph. 2022-10-16 2022-10-16 Outpatient GC_SWHAT[facility] PRIV PRIV 244 [id number] [facility] 00:00:00 00:00:00 _Martin [id number] Medic al 2022-10-15 2022-10-15 Outpatient [facility]_ PRIV PRIV 244 [id number] [facility] 00:00:00 00:00:00 Ball_C [id number] Medica l 2022-10-15 2022-10-15 Outpatient [facility]_ PRIV PRIV 244 [id number] [facility] 00:00:00 00:00:00 Ball_C [id number] Medica l 2022-10-15 2022-10-15 Outpatient [facility]_ PRIV PRIV 244 [id number] [facility] 00:00:00 00:00:00 Ball_C [id number] Medica l 2022-10-15 2022-10-15 Janelle [facility] [id number] [facility] 00:00:00 00:00:00 [facility] - Medic remy Delarosa MD: GC_SWAVELINAOM[facility]_ [address], [address], [place] [address] , Ph. 2022-10-14 2022-10-14 Outpatient [facility]_ PRIV PRIV 244 [id number] [facility] 00:00:00 00:00:00 Ball_C [id number] Medica l 2022-09-17 2022-09-17 Outpatient GC_[facility] PRIV PRIV 244 [id number] [facility] 00:00:00 00:00:00 _Martin [id number] Medic al 2022-09-17 2022-09-17 Janelle [facility] [id number] [facility] 00:00:00 00:00:00 [facility] - Medic remy Delarosa MD: NICOLE_SWAVELINAOMC_ [address], [address], [place] [address] , Ph. 2022-09-16 2022-09-16 Outpatient GC_[facility]_ PRIV PRIV 244 [id number] [facility] 00:00:00 00:00:00 Ball_C [id number] Medica l 2022-08-21 2022-08-21 Outpatient [facility]_ PRIV PRIV 244 [id number] [facility] 00:00:00 00:00:00 Ball_C [id number] Medica l 2022-08-05 2022-08-05 Outpatient [facility]_ PRIV PRIV 244 [id number] [facility] 00:00:00 00:00:00 Ball_C [id number] Medica l 2022-08-05 2022-08-05 Janelle [facility] 00:00:00 00:00:00 [facility] - Medic remy Delarosa MD: GC_SWAVELINAOMC_ [address], [address], [place] [address] , Ph. 2022-07-28 2022-07-28 Outpatient [facility]_ PRIV PRIV 244 [id number] [facility] 00:00:00 00:00:00 Ball_C [id number] Medica l 2022-07-10 2022-07-10 Outpatient PRIV PRIV [id number] [facility] 00:00:00 00:00:00 [id number] Medica l 2022 2022 Outpatient [facility]_ PRIV PRIV 244 [id number] [facility] 00:00:00 00:00:00 Ball_C [id number] Medica l 2022 2022 Janelle [facility] 22 [facility] 00:00:00 00:00:00 [facility] Medic remy Delarosa MD: GC_[facility]_ [address] [facility] [place], [place] [address] , Ph. 2022-07-04 2022-07-04 Outpatient GC_[facility]_ PRIV PRIV 244 [id number] [facility] 00:00:00 00:00:00 Ball_C [id number] Medica l 2022-06-10 2022-06-10 Outpatient [facility]_ PRIV PRIV 244 [id number] [facility] 00:00:00 00:00:00 Ball_C [id number] Medica l 2022-06-09 2022-06-09 Outpatient [facility]_ PRIV PRIV 244 [id number] [facility] 00:00:00 00:00:00 Ball_C [id number] Medica l 2022-06-04 2022-06-04 Outpatient [facility]_ PRIV PRIV 244 [id number] [facility] 00:00:00 00:00:00 Ball_C [id number] Medica l 2022-06-04 2022-06-04 Outpatient Janelle Delarosa PRIV [id number] 00:00:00 00:00:00 Omari [id number] 2022-06-04 2022-06-04 Janelle [facility] 18 [facility] 00:00:00 00:00:00 [facility] Medic remy Delarosa MD: GC_[facility]_ [address], [address], [place] [address] , Ph. 2022-05-30 2022-05-30 Outpatient GC_[facility]_ PRIV PRIV 244 [id number] [facility] 00:00:00 00:00:00 Ball_C [id number] Medica l 2022-05-15 2022-05-15 Outpatient [facility]_ PRIV PRIV 244 [id number] [facility] 00:00:00 00:00:00 Ball_C [id number] Medica l 2022-05-14 2022-05-14 Outpatient [facility]_ PRIV PRIV 244 [id number] [facility] 00:00:00 00:00:00 Ball_C [id number] Medica l 2022-05-14 2022-05-14 Outpatient Janelle Delarosa [facility] PRIV [id number] 00:00:00 00:00:00 Omari [id number] 2022-05-14 2022-05-14 Janelle [facility] 28 [facility] 00:00:00 00:00:00 [facility] MD [place]: GC_S[facility]OM[facility]_ [address], [address], [place] [address] , Ph. 2022-05-12 2022-05-12 Outpatient [facility]_ PRIV PRIV 244 [id number] [facility] 05:06:00 05:06:00 Ball_C [id number] Medica l 2022-05-06 2022-05-06 Refill Shay Dominguez 1.2.840.1 [id number] Methodi 00:00:00 00:00:[address] 3.430.2.7 Hospit a .3.359301 l .8 2022-05-04 2022-05-04 Outpatient GC_[facility]_ PRIV PRIV 244 [id number] [facility] 11:53:00 11:53:00 Ball_C [id number] Medica l 2022-04-09 2022-04-09 Office Shay Dominguez 1.2.840.1 [id number] 21 [id number] Methodi 10:00:00 10:40:04 Visit AHalina 20849.1.[address] 3.430.2.7 Hospit a .3.097449 l .8 2022-04-09 2022-04-09 Outpatient SHAY DOMINGUEZ [facility] 799 [id number] [place] 00:00:00 00:00:[address] 2022-04-09 2022-04-09 Travel 1.2.840.1 1.2.286.123 6342 [id number] Methodi 00:00:00 00:00:[address] 3.430.2.7 0.2.7.3.698 Ho spita .3.448553 084.8 l .8 2022-04-06 2022-04-06 Travel 1.2.840.1 1.2.932.910 7094 [id number] Methodi 00:00:00 00:00:[address] 3.430.2.7 0.2.7.3.698 Ho spita .3.304514 084.8 l .8 2021-07-07 2021-07-07 Infusion Odell, 1.2.840.1 [id number] Methodi 16:23:37 18:04:53 [address]ero Arcin[address]ga [address] 3.430.2.7 Hospit a .3.857398 l .8 2021-07-07 2021-07-07 Bowen Campos 1.2.840.1 [id number] 1991 Methodi 00:00:00 00:00:00 Only Radha 81494.1.[address] 3.430.2.7 Hospit a .3.303819 l .8 2021-07-07 2021-07-07 Marcos Bain 1.2.840.1 [id number] 2100 [id number] Methodi 00:00:00 00:00:[address] 3.430.2.7 Hospit a .3.284912 l .8 2021-07-07 2021-07-07 Travel 1.2.840.1 1.2.161.508 4528 [id number] Methodi 00:00:00 00:00:[address] 3.430.2.7 0.2.7.3.698 Ho spita .3.342542 084.8 l .8 2021-07-07 2021-07-07 Orders Beth, 1.2.840.1 [id number] 9319 Methodi 00:00:00 00:00:00 Only Radha 50580.1.[address] 3.430.2.7 Hospit a .3.094997 l .8 2021-06-13 2021-06-13 Letter JORDAN Almaraz 1.2.840.114 [id number] Univers 00:00:00 00:00:00 (Out) Chloe LÓPEZ 350.1.13.10 it y of [facility] 4.2.7.2.686 Tonny as 403.0433674 [facility] 019 [place] 2021-06-12 2021-06-12 Laboratory Only, Ang Db Test [facility] 1.2.8 40.114 [id number] Univers 13:45:25 14:00:25 Only Taz [facility] 350.1.13.10 ity of [place] 4.2.7.2.686 Tonny as Binu?Blea [phone] Nd dic[address] [facility] 2021-06-12 2021-06-12 Outpatient R TAZ [facility] [id number] Univers 13:45:00 13:45:00 KAILASH ity of [facility] 2021-06-12 2021-06-12 Orders Doctor ORTEGA 1.2.840.114 [id number] Univers 00:00:00 00:00:00 Only Unassigned, RENE 350.1.13.10 ity of [place] [facility] 4.2.7.2.686 Tonny as [phone] [facility] [address] 2021-01-10 2021-01-10 Outpatient R ARLENE [facility] [id number] Univers 12:10:00 12:10:[address] [facility] 2021-01-07 2021-01-07 Outpatient Tamiko JACOBS [facility] [id number] Univers 10:00:00 10:00:[address] [facility] 2020-12-17 2020-12-17 Outpatient Tamiko JACOBS [facility] [id number] Univers 10:20:00 10:20:[address] [facility] 2020-10-24 2020-10-24 Outpatient Tamiko JACOBS [facility] [id number] Univers 10:10:00 10:10:[address] [facility] 2020-09-05 2020-09-[address] [facility] [id number] mmon 00:00:00 00:00:00 VISIT Spirit ESTAB PT - CHI LEVEL 4 [facility] 2020-05-18 2020-05-18 Orders Doctor JORDAN 1.2.840.114 [id number] Univers 00:00:00 00:00:00 Only Unassigned, RENE 350.1.13.10 ity of [place] [facility] 4.2.7.2.686 Tonny as [phone] [address] 2020-05-17 2020-05-17 Laboratory Lab, Adc Fam Pob I [facility] 1.2. 840.114 [id number] Univers 10:03:44 10:15:22 Only Anene, [facility] 350.1.13.10 ity of [place] 4.2.7.2.686 Tonny as Professio [phone] Nd dic[address] Office [address] One 2020-05-17 2020-05-17 Outpatient R [facility] [id number] Univers 10:00:00 10:00:00 ity of [facility] 2020-05-15 2020-05-15 Outpatient R [facility] [id number] Univers 09:40:00 09:40:00 ity of [facility] 2020-05-03 2020-05-03 Telephone Lab, Eulalio Avitia2.840.114 [id number] Univers 00:00:00 00:00:00 Fam Pob I RENE 350.1.13.10 ity of [facility] 4.2.7.2.686 Tonny as [phone] [facility] [address] 2020-05-01 2020-05-01 Laboratory Lab, Adc Fam Pob I [facility] 1.2. 840.114 [id number] Univers 09:33:43 09:53:43 Only Jerson Velasco 350.1.13.10 ity of [place] 4.2.7.2.686 Tonny as kiranio [phone] Nd dical replaced by [facility] [address] One 2020-05-01 2020-05-01 Outpatient Tamiko VELASCO [facility] [id number] Univers 09:40:00 09:40:[address] [facility] 2019-11-29 2019-11-29 [id number] Common 08:00:00 08:00:[address] [facility] 2019-04-26 2019-04-26 [facility] [id number] Common 16:40:00 16:40:[address] [facility] 2019-01-16 2019-01-16 [facility] 24 [id number] Common 13:57:00 13:57:[address] [facility] 2018-12-20 2018-12-20 [facility] [id number] Common 10:00:00 10:00:[address] [facility] 2018-12-06 2018-12-06 [facility] 24 [id number] Common 01:18:00 01:18:[address] [facility] 2018-12-01 2018-12-01 [facility] 24 [id number] Common 11:55:00 11:55:[address] [facility] 2018-11-22 2018-11-22 [facility] 24 [id number] Common 10:14:00 10:14:[address] [facility] 2018-11-16 2018-11-16 [facility] 23 [id number] Common 15:30:00 15:30:00 t [facility] [address] [facility] 2018-11-14 2018-11-14 Outpatient Vinec [facility] 23 [id number] Common 21:14:00 21:14:00 t [facility] [address] [facility] 2018-11-14 2018-11-14 Outpatient Vince [place] 23 [id number] Common 10:30:00 10:30:00 [facility] [address] [facility] 2016-10-31 2016-11-02 Inpatient X ISAC, [facility] JUSTEN [id number] Univers 18:12:39 12:06:00 [facility] 2007-05-03 2007-05-03 Outpatient [facility] [id number] Univers 00:00:00 16:44:00 2 [facility] 2005-01-02 2005-01-02 Outpatient [facility] [id number] Univers 00:00:00 14:24:00 3 [facility] Results Test Description Test Time Test Comments Results Result Comments Source HGB HCT 2022-12-19 10:33:00 Test Item Value Reference Range Interpretation Comme nts HEMOGLOBIN (test code = HGB) 7.8 g/dL 10.1-13.8 L HEMATOCRIT (test code = HCT) 25.1 % 32.5-41.8 L HGB [id number] 08:45:00 Test Item Value Reference Range Interpretation Comments HEMOGLOBIN (test code = HGB) 9.1 g/dL 10.1-13.8 L HEMATOCRIT (test code = HCT) 29.4 % 32.5-41.8 L CAPILLARY BLOOD [id number] 20:27:00 Test Item Value Reference Range Interpretation Comments CAPILLARY BLOOD GAS PH (test code 7.162 7.35-7.45 LL = PHC) CAPILLARY BLOOD GAS PCO2 (test 64.5 mmHg code = PCO2C) CBG HCO3 (test code = HCO3C) 22.6 meq/L CBG BASE EXCESS (test code = BEC) -7.2 CAPILLARY BLOOD GAS TYPE (test CBLA code = TYPEC) CAPILLARY BLOOD GAS DEL (test code RA = DELC) CAPILLARY BLOOD [id number] 20:27:00 Test Item Value Reference Range Interpretation Comments CAPILLARY BLOOD GAS PH (test code 7.250 7.35-7.45 L = PHC) CAPILLARY BLOOD GAS PCO2 (test 52.9 mmHg code = PCO2C) CBG HCO3 (test code = HCO3C) 22.7 meq/L CBG BASE EXCESS (test code = BEC) -5.1 CAPILLARY BLOOD GAS TYPE (test CBLV code = TYPEC) CAPILLARY BLOOD GAS DEL (test code RA = DELC) AG HEPATITIS B [id number] 01:43:00 Test Item Value Reference Range Interpretation Comments AG HEPATITIS B SURFACE (test code NONREACTIVE NONREACTIVE = HBSAG) AB HEPATITIS C [id number] 01:43:00 Test Item Value Reference Range Interpretation Comments AB HEPATITIS C (test code = NONREACTIVE NONREACTIVE HCVAB) SIGNAL TO CUTOFF (test code = 0.11 <0.80 N CUTOFF) RUBELLA [id number] 01:43:00 Test Item Value Reference Range Interpretation Comments RUBELLA SCREEN 93.1 IUnit/ml Results >10. 0IUnits/ml (test code = are considered positive RUBSC) inaccordance wi th the CLSI guidelines and based on the [employer] S tandard for Anti-Rubell a serum as anindicator of immune status and a br eakpoint to detect mostseropositiv e persons. AB [id number] 01:43:00 Test Item Value Reference Range Interpretation Comments AB TREPONEMA (test code = TREPAB) NONREACTIVE NONREACTIVE AB HIV 1 01:43:00 Test Item Value Reference Range Interpretation Comments AB HIV 1 2 (test NONREACTIVE NONREACTIVE [facility] code = [id number]) 4th Gen HIV Ag/Ab Combo Screen UR PROTEIN/CREATININE [id number] 23:44:00 Test Item Value Reference Range Interpretation Comments UR PROTEIN RANDOM (test code = 31.6 mg/dL PROTU) UR CREATININE RANDOM (test 116.0 mg/dL code = CREATU) PROTEIN/CREATININE RATIO (test 272.4 mg/gcrea <200 H code = P/CRATIO) PIH [id number] 23:37:00 Test Item Value Reference Range Interpretation Comments CREATININE (test code = CREAT) 0.5 mg/dL 0.5-1.0 N SGOT/AST (test code = AST) 14 units/L 15-37 L SGPT/ALT (test code = ALT) 16 units/L 12-78 N LACTIC DEHYDROGENASE(LDH) (test 159 units/L 81-234 N code = LDH) : *COMPREHENSIVE METABOLIC [id number] 23:37:00 Test Item Value Reference Range Interpretation Comments SODIUM (test code = 136 mEq/L 135-145 N NA) POTASSIUM (test code 4.1 mEq/L 3.5-5.0 N = K) CHLORIDE (test code 103 mEq/L 100-115 N = CL) CARBON DIOXIDE (test 23 mEq/L 22-31 N code = CO2) ANION GAP (test code 14.20 10-20 N = GAP) GLUCOSE (test code = 88 mg/dL 65-110 N GLU) BLOOD UREA NITROGEN 8 mg/dL 7-18 N (test code = BUN) GLOMERULAR 125 ml/min >60 N The Glomerular FILTRATION RATE Filtration R ate is a (test code = GFR) calculated parameterbased on serum Creatinin e, patient age and sex. GFR valuesless than 60 mL/min/1.73 squ are meters are noy cative ofChronic Kidne y Disease. Values less than 15 mL/min/1.73squa re meters indicate Kidney failure. The calculation for GFR is based on the CK D-EPI (2020) calculat ion. This formulais race indifferent and is the recommended for flor for GFRby the N [facility] for Adults.The GFR will not calculate i f the sex is unknown or if thepatient's ag e is <18 years. TOTAL PROTEIN (test 6.6 gm/dL 6.3-8.2 N code = PROT) ALBUMIN (test code = 2.6 gm/dL 3.4-4.8 L ALB) CALCIUM (test code = 9.6 mg/dL 8.4-10.2 N CA) BILIRUBIN TOTAL 0.3 mg/dL 0.2-1.0 N (test code = BILT) ALKALINE PHOSPHATASE 157 units/L 46-116 H TOTAL (test code = ALKP) : *CBC W/AUTO [id number] 23:34:00 Test Item Value Reference Range Interpretation Comments WHITE BLOOD CELL (test code = WBC) 11.6 K/mm3 6.5-12.3 N RED BLOOD CELL (test code = RBC) 4.97 M/mm3 3.51-4.69 H HEMOGLOBIN (test code = HGB) 11.2 g/dL 10.1-13.8 N HEMATOCRIT (test code = HCT) 35.4 % 32.5-41.8 N MEAN CELL VOLUME (test code = MCV) 71.2 fL 84.6-96.6 L MEAN CELL HGB (test code = MCH) 22.5 pg 27.3-33.9 L MEAN CELL HGB CONCETRATION (test 31.6 gm/dL 32.0-34.2 L code = MCHC) RED CELL DISTRIBUTION WIDTH (test 17.6 % 12.2-16.3 H code = RDW) PLATELET COUNT (test code = PLT) 280 K/mm3 134-363 N MEAN PLATELET VOLUME (test code = 10.7 fL 9.2-12.7 N MPV) NEUTROPHIL % (test code = NT%) 67.2 % 57.9-77.3 N LYMPHOCYTE % (test code = LY%) 19.1 % 14.5-29.7 N MONOCYTE % (test code = MO%) 9.2 % 3.6-10.2 N EOSINOPHIL % (test code = EO%) 1.6 % 0.0-3.0 N BASOPHIL % (test code = BA%) 0.5 % 0.1-0.9 N NEUTROPHIL # (test code = NT#) 7.8 K/mm3 LYMPHOCYTE # (test code = LY#) 2.2 K/mm3 MONOCYTE # (test code = MO#) 1.1 K/mm3 EOSINOPHIL # (test code = EO#) 0.19 K/mm3 BASOPHIL # (test code = BA#) 0.1 K/mm3 RBC MORPHOLOGY REQUIRED (test code NORMAL NORMAL = RBCM) PLATELET MORPHOLOGY REQUIRED (test NORMAL NORMAL code = PLTMR) URINALYSIS [id number] 23:26:00 Test Item Value Reference Range Interpretation Comments UA COLOR (test code = COLU) YELLOW YELLOW UA APPEARANCE (test code = CLOUDY CLEAR A APPU) UA GLUCOSE DIPSTICK (test code 1+ NEG A = DGLUU) UA BILIRUBIN DIPSTICK (test NEGATIVE NEG code = BILU) UA KETONE DIPSTICK (test code NEGATIVE NEG = KETU) UA SPECIFIC GRAVITY (test code 1.023 1.001-1.035 N = SGU) UA BLOOD DIPSTICK (test code = NEG NEG MAYRA) UA PH DIPSTICK (test code = 5.0 5-9 BULL) UA PROTEIN DIPSTICK (test code 1+ NEG A = PROU) UA UROBILINIOGEN DIPSTICK NEGATIVE mg/dL NEG (test code = URO) UA NITRITE DIPSTICK (test code NEG NEG = CELESTINA) UA LEUKOCYTE ESTERASE DIPSTICK 3+ NEG A (test code = LEUU) UA WBC (test code = WBCU) 21-30 #/hpf NONE SEEN A UA RBC (test code = RBCU) 6-10 #/hpf NONE SEEN A UA EPITHELIAL CELLS (test code MODERATE #/HPF RARE-FEW A = EPIU) UA BACTERIA (test code = BACU) RARE /HPF RARE-FEW UA CALCIUM OXALATE CRYSTALS 21-25 #/LPF (test code = CAOXU) UA MUCUS (test code = MUCU) 1+ NONE SEEN URINE SAMPLE: CLEAN CATCHCOMPREHENSIVE METABOLIC [id number] 18:22:00 Test Item Value Reference Range Interpretation Comments SODIUM (test code = 136 mEq/L 135-145 N NA) POTASSIUM (test code 4.2 mEq/L 3.5-5.0 N = K) CHLORIDE (test code 101 mEq/L 100-115 N = CL) CARBON DIOXIDE (test 24 mEq/L 22-31 N code = CO2) ANION GAP (test code 15.70 10-20 N = GAP) GLUCOSE (test code = 97 mg/dL 65-110 N GLU) BLOOD UREA NITROGEN 8 mg/dL 7-18 N (test code = BUN) GLOMERULAR 119 ml/min >60 N The Glomerular FILTRATION RATE Filtration R ate is a (test code = GFR) calculated parameterbased on serum Creatinin e, patient age and sex. GFR valuesless than 60 mL/min/1.73 squ are meters are noy cative ofChronic Kidne y Disease. Values less than 15 mL/min/1.73squa re meters indicate Kidney failure. The calculation for GFR is based on the CK D-EPI (2020) calculat ion. This formulais race indifferent and is the recommended for flor for GFRby the N [facility] Kidney Foundati on for Adults.The GFR will not calculate i f the sex is unknown or if thepatient's ag e is <18 years. CREATININE (test 0.6 mg/dL 0.5-1.0 N code = CREAT) TOTAL PROTEIN (test 6.5 gm/dL 6.3-8.2 N code = PROT) ALBUMIN (test code = 2.6 gm/dL 3.4-4.8 L ALB) CALCIUM (test code = 9.3 mg/dL 8.4-10.2 N CA) BILIRUBIN TOTAL 0.3 mg/dL 0.2-1.0 N (test code = BILT) SGOT/AST (test code 15 units/L 15-37 N = AST) SGPT/ALT (test code 18 units/L 12-78 N = ALT) ALKALINE PHOSPHATASE 153 units/L 46-116 H TOTAL (test code = ALKP) UR PROTEIN/CREATININE [id number] 18:00:00 Test Item Value Reference Range Interpretation Comments UR PROTEIN RANDOM (test code = 51.0 mg/dL PROTU) UR CREATININE RANDOM (test 157.4 mg/dL code = CREATU) PROTEIN/CREATININE RATIO (test 324.0 mg/gcrea <200 H code = P/CRATIO) CBC W/AUTO [id number] 17:38:00 Test Item Value Reference Range Interpretation Comments WHITE BLOOD CELL (test code = WBC) 11.1 K/mm3 6.5-12.3 N RED BLOOD CELL (test code = RBC) 4.87 M/mm3 3.51-4.69 H HEMOGLOBIN (test code = HGB) 11.0 g/dL 10.1-13.8 N HEMATOCRIT (test code = HCT) 34.7 % 32.5-41.8 N MEAN CELL VOLUME (test code = MCV) 71.3 fL 84.6-96.6 L MEAN CELL HGB (test code = MCH) 22.6 pg 27.3-33.9 L MEAN CELL HGB CONCETRATION (test 31.7 gm/dL 32.0-34.2 L code = MCHC) RED CELL DISTRIBUTION WIDTH (test 17.0 % 12.2-16.3 H code = RDW) PLATELET COUNT (test code = PLT) 268 K/mm3 134-363 N MEAN PLATELET VOLUME (test code = 10.8 fL 9.2-12.7 N MPV) NEUTROPHIL % (test code = NT%) 70.1 % 57.9-77.3 N LYMPHOCYTE % (test code = LY%) 16.5 % 14.5-29.7 N MONOCYTE % (test code = MO%) 9.7 % 3.6-10.2 N EOSINOPHIL % (test code = EO%) 1.1 % 0.0-3.0 N BASOPHIL % (test code = BA%) 0.4 % 0.1-0.9 N NEUTROPHIL # (test code = NT#) 7.8 K/mm3 LYMPHOCYTE # (test code = LY#) 1.8 K/mm3 MONOCYTE # (test code = MO#) 1.1 K/mm3 EOSINOPHIL # (test code = EO#) 0.12 K/mm3 BASOPHIL # (test code = BA#) 0.0 K/mm3 RBC MORPHOLOGY REQUIRED (test code NORMAL NORMAL = RBCM) PLATELET MORPHOLOGY REQUIRED (test NORMAL NORMAL code = PLTMR) - DOP VELOCITY UMBILCL [id number] 00:00:00 [facility] 1985 Sex: F Patient Name: SUSU LARA Unit No: [id number] EXAMS: CPT CODE: [id number] DOP VELOCITY UMBILCL ART 86682 PROCEDURE INFORMATION: Exam: US Doppler Velocimetry of the Umbilical Artery Exam date and time: 12/14/2022 5:44 PM Age: 37 years old Clinical indication: Other: Dfm: 03/25 bpp [address] drs office; Lmp or gestational age (in weeks): 39wks; ; Additional info: 39.0 week iup, bpp 5/8 in office TECHNIQUE: Imaging protocol: US Doppler velocimetry of the umbilical artery with Doppler color and waveformanalysis. COMPARISON: No relevant prior studies available. FINDINGS: Umbilical cord and insertion: S/D ratios measured 1.9, 2.0 and 2.3 IMPRESSION: S/D ratios as given above PROCEDURE INFORMATION: Exam: US Biophysical Profile Without Non-Stress Test Exam date and time:12/14/2022 5:44 PM Age: 37 years old Clinical indication: Other: Dfm: 03/25 bpp at drs office; Lmp or ge stational age (in weeks): 39wks; ; Additional info: 39.0 week iup, bpp 8 in office TECHNIQUE: Imaging protocol: US biophysical profile without non- stress testing. COMPARISON: No relevant prior studies available. FINDINGS: Study is limited due to maternal body habitus. heart rate: 158 bpm presentation: Cephalic Placenta: Anterior grade 3 placenta without previa. Amniotic fluid index: YAW is 13.6 cm. Cervix: Not well seen BIOPHYSICAL PROFILE: breathing movement (BPP): 2/2 body movement (BPP): 2/2 tone (BPP): 2/2 Amniotic fluid (BPP): 2/2 Biophysical profile score (BPP): 8/8 IMPRESSION: [facility] NAME: SUSU LARA Radiology Department PHYS: Janelle Arana MD [address] : 1985 AGE: 37 SEX: F [place], [place] [address] LOC: ArleneMARYANNE PHONE #: [phone] EXAM DATE: 12/14/2022 STATUS: REG ER FAX #: [phone] RAD NO: Page 1 Signed Report (CONTINUED) Patient Name: SUSU LARA Unit No: [id number] EXAMS: CPT CODE: [id number] DOP VELOCITY UMBILCL ART 75436 (Continued) Biophysical profile score is 8 out of 8. at 1915 Reported and signed by: Benito Solorio MD CC: Janelle Delarosa MD Technologist: Reilly Booker RDMS Probe: Trnscrbd D/ (1914) GCD.CPS Orig Print D/T: S: 12/14/2022 (1914) The [facility] NAME: SUSU LARA Radiology Department PHYS: Janelle Arana MD [address] : 1985 AGE: 37 SEX: F [place], [place] [address]LJVM NO: [id number] LOC: Eileen.MARYANNE PHONE #: [phone] EXAM DATE: 12/14/2022 STATUS: REG ER FAX #: [phone] RAD NO: Page 2 Signed Report Patient Name: SUSU LARA Unit No: [id number] EXAMS: CPT CODE: [id number] DOP VELOCITY UMBILCL ART 40891 (Continued) [facility] NAME: SUSU LARA Radiology Department PHYS: Janelle Arana MD [address] : 1985 AGE: 37 SEX: F [place], [place] [address] LOC: F.MARYANNE PHONE #: [phone] EXAM DATE: 12/14/2022 STATUS:REG ER FAX #: [phone] RAD NO: Page 3 Signed Report- [facility] MD W/O [id number] 00:00:00[facility] 1985 Sex: F Patient Name: SUSU LARA Unit No: [id number] EXAMS: CPT CODE: [id number] US FET BIO PH MD W/O NST 47955 PROCEDURE INFORMATION: Exam: US Doppler Velocimetry of the Umbilical Artery Exam date and time: 12/14/2022 5:44 PM Age: 37 years old Clinical indication: Other: Dfm: 6/8 bpp at [facility] office; Lmp or gestational age (in weeks): 39wks; ; Additional info: 39.0 week iup, bpp 5/8 in office TECHNIQUE: Imaging protocol: US Doppler velocimetry of the umbilical artery with Doppler color and waveformanalysis. COMPARISON: No relevant prior studies available. FINDINGS: Umbilical cord and insertion: S/D ratios measured 1.9, 2.0 and 2.3 IMPRESSION: S/D ratios as given above PROCEDURE INFORMATION: Exam: US Biophysical Profile Without Non-Stress Test Exam date and time: 12/14/2022 5:44 PM Age: 37 years old Clinical indication: Other: Dfm: 6/8 bpp at [facility] office; Lmp or gestational age (in weeks): 39wks; ; Additional info: 39.0 week iup, bpp 5/8 in office TECHNIQUE: Imaging protocol: US biophysical profile without non-stress testing. COMPARISON: No relevant priorstudies available. FINDINGS: Study is limited due to maternal body habitus. heart rate: 158 bpm presentation: Cephalic Placenta: Anterior grade 3 placenta without previa. Amniotic fluid index: YAW is 13.6 cm. Cervix: Not well seen BIOPHYSICAL PROFILE: breathing movement (BPP): 2/2 body movement (BPP): 2/2 tone (BPP): 2/2 Amniotic fluid (BPP): 2/2 Biophysical profile score (BPP): 8/8 IMPRESSION: [facility] NAME: SUSU LARA Radiology Department PHYS: Janelle Arana MD [address] : 1985 AGE: 37 SEX: F [place], [place] [address] LOC: Eileen.MARYANNE PHONE #: [phone] EXAM DATE: 12/14/2022 STATUS: REG ER FAX #: [phone] RADNO: Page 1 Signed Report (CONTINUED) Patient Name: SUSU LARA Unit No: [id number] EXAMS: CPT CODE: [id number] FET BIO PH MD W/O NST 67427 (Continued) Biophysical profile score is 8 out of 8. at 1915 Reported and signed by: Benito Solorio, [facility]: Janelle Delarosa MD Technologist: Reilly Booker RDMS Probe: Trnscrbd D/ (1914) GCD.CPS Orig Print D/T: S: 12/14/2022 (1914) [facility] NAME: SUSU LARA Radiology Department PHYS: Janelle Arana MD [address] : 1985 AGE: 37 SEX: F [place] [address] LOC: ArleneMARYANNE PHONE #: [phone] EXAM DATE: 12/14/2022 STATUS: REG ER FAX #: [phone] RAD NO: Page 2 Signed Report Patient Name: SUSU LARA Unit No: [id number] EXAMS: CPT CODE:[id number] [facility] BIO PH MD W/O NST 47874 (Continued) The [facility] NAME: SUSU LARA Radiology Department PHYS: Janelle Arana MD [address] : 1985 AGE: 37 SEX: F [place] [address] LOC: ArleneMARYANNE PHONE #: [phone] EXAM DATE: 12/14/2022 STATUS: REG ER FAX #: [phone] RAD NO: Page 3 Signed ReportStreptococcus agalactiae [Presence] in Specimen by Organism specific [id number] 00:00:00 Test Item Value Reference Range Interpretation Comments culture, genital (strep B) (test negative negative code = culture, genital (strep B)) [facility] agalactiae [Presence] in Specimen by Organism specific [id number] 00:00:00 Test Item Value Reference Range Interpretation Comments culture, genital (strep B) (test negative negative code = culture, genital (strep B)) [facility] MedicalStreptococcus agalactiae [Presence] in Specimen by Organism specific [id number] 00:00:00 Test Item Value Reference Range Interpretation Comments culture, genital (strep B) (test negative negative code = culture, genital (strep B)) [facility] MedicalReagin Ab [Presence] in Serum by [id number] 00:00:00 Test Item Value Reference Range Interpretation Comments RPR (test code = RPR) non-reactive non-reactive [facility] MedicalHIV 1+2 Ab+HIV1 p24 Ag [Presence] in Serum or Plasma by [id number] 00:00:00 Test Item Value Reference Range Interpretation Comments HIV Ag/Ab (test code = HIV non-reactive non-reactive Ag/Ab) [facility] MedicalGlucose [Mass/volume] in Serum or Plasma --post 50 g glucose 2022-10-17 00:00:00 Test Item Value Reference Range Interpretation Comments glu.1HR(glucola)preg. (test code = 129 mg/dL <130 glu.1HR(glucola)preg.) [facility] MedicalCBC panel - Blood by Automated [id number] 00:00:00 Test Item Value Reference Range Interpretation Comments WBC (test code = WBC) 11.1 10 3.7-12.0 RBC (test code = RBC) 4.81 10 3.60-5.50 HGB (test code = HGB) 10.7 g/dL 11.5-15.6 L HCT (test code = HCT) 33.7 % 34.5-46.5 L MCV (test code = MCV) 70.2 um 80.0-102.0 L MCH (test code = MCH) 22.3 pg 25.0-34.1 L MCHC (test code = MCHC) 31.8 g/dL 29.0-35.0 RDW (test code = RDW) 16.9 % 10.9-16.9 H plt (test code = plt) 287 10 136-392 MPV (test code = MPV) 8.8 um 7.4-11.1 gran % (test code = gran %) 75.2 % 36.0-78.0 lymph % (test code = lymph %) 15.7 % 12.0-48.0 mono % (test code = mono %) 7.1 % 0.0-13.0 eos % (test code = eos %) 2 % 0-8 baso % (test code = baso %) 0 % 0-2 gran # (test code = gran #) 8.4 10 1.2-6.8 H lymph # (test code = lymph #) 1.8 10 1.2-3.2 mono # (test code = mono #) 0.8 10 0.3-0.8 eos # (test code = eos #) 0.2 10 0.0-0.2 baso # (test code = baso #) 0.0 10 0.0-0.2 [facility]ww[facility] [Mass/volume] in Serum or [id number] 00:00:00 Test Item Value Reference Range Interpretation Comments dating method: (test edc by LMP (provide code = dating method:) edc date below) enter date here: (test 12/22/2022 code = enter date here:) ethnicity: (test code = other ethnicity:) insulin dependent N diabetic: (test code = insulin dependent diabetic:) number of fetuses: 1 (test code = number of fetuses:) race: (test code = other race:) maternal serum AFP negative screen (test code = maternal serum AFP screen) [facility]+HIV1 p24 Ag [Presence] in Serum or Plasma by [id number] 00:00:00 Test Item Value Reference Range Interpretation Comments HIV Ag/Ab (test code = HIV non-reactive non-reactive Ag/Ab) [facility] - Serum and [id number] 00:00:00 Test Item Value Reference Range Interpretation Comments WBC (test code = 12.12 x10(3)/uL 4.00-10.10 H WBC) RBC (test code = 4.90 x10(6)/uL 3.58-5.19 RBC) HGB (test code = 10.8 g/dL 11.0-15.5 L HGB) HCT (test code = 33.6 % 31.5-44.8 HCT) MCV (test code = 68.6 fL 78.0-98.0 L MCV) MCH (test code = 22.0 pg 25.2-32.6 L MCH) MCHC (test code = 32.1 g/dL 31.0-34.7 MCHC) RDW (test code = 17.3 % 12.0-15.5 H RDW) platelet count (test 369 x10(3)/uL 140-425 code = platelet count) lymphs (test code = 20.8 % 13.7-50.9 lymphs) monos (test code = 7.2 % 3.0-11.9 monos) eos (test code = 2.0 % 0.0-5.0 eos) basos (test code = 0.4 % 0.0-1.0 basos) MPV (test code = 10.0 fL 8.6-12.1 MPV) polys (test code = 68.4 % 37.1-78.1 polys) RPR (test code = non-reactive non-reactive RPR) immature 1.2 % 0.0-1.0 H granulocytes (test code = immature granulocytes) ABO/Rh blood type O pos (test code = ABO/Rh blood type) antibody screen negative negative (test code = antibody screen) hep. B surf. Ag non-reactive non-reactive (test code = hep. B surf. Ag) rubella,IgG (test 77.2 [IU]/mL See_Comment [Automate d code = rubella,IgG) message] The system which generated this result transmit bryan reference range : immune >9.9. Th e reference range was not used to interpret this result as normal/abnormal . [facility] 1+2 Ab+HIV1 p24 Ag [Presence] in Serum or Plasma by [id number] 00:00:00 Test Item Value Reference Range Interpretation Comments HIV Ag/Ab (test code = HIV non-reactive non-reactive Ag/Ab) [facility] MedicalOb[facility]etric 1996 panel - Serum and [id number] 00:00:00 Test Item Value Reference Range Interpretation Comments WBC (test code = 12.12 x10(3)/uL 4.00-10.10 H WBC) RBC (test code = 4.90 x10(6)/uL 3.58-5.19 RBC) HGB (test code = 10.8 g/dL 11.0-15.5 L HGB) HCT (test code = 33.6 % 31.5-44.8 HCT) MCV (test code = 68.6 fL 78.0-98.0 L MCV) MCH (test code = 22.0 pg 25.2-32.6 L MCH) MCHC (test code = 32.1 g/dL 31.0-34.7 MCHC) RDW (test code = 17.3 % 12.0-15.5 H RDW) platelet count (test 369 x10(3)/uL 140-425 code = platelet count) lymphs (test code = 20.8 % 13.7-50.9 lymphs) monos (test code = 7.2 % 3.0-11.9 monos) eos (test code = 2.0 % 0.0-5.0 eos) basos (test code = 0.4 % 0.0-1.0 basos) MPV (test code = 10.0 fL 8.6-12.1 MPV) polys (test code = 68.4 % 37.1-78.1 polys) RPR (test code = non-reactive non-reactive RPR) immature 1.2 % 0.0-1.0 H granulocytes (test code = immature granulocytes) ABO/Rh blood type O pos (test code = ABO/Rh blood type) antibody screen negative negative (test code = antibody screen) hep. B surf. Ag non-reactive non-reactive (test code = hep. B surf. Ag) rubella,IgG (test 77.2 [IU]/mL See_Comment [Automate d code = rubella,IgG) message] The system which generated this result transmit bryan reference range : immune >9.9. Th e reference range was not used to interpret this result as normal/abnormal . [facility] [Units/volume] in Serum or [id number] 00:00:00 Test Item Value Reference Range Interpretation Comments TSH (test code = TSH) 0.578 uIU/mL 0.178-4.530 [facility] Notes Date/Time Note Provider Source 2023-01-25 21:26:00-00:00 [facility] ([facility]) OB Intrapart Prog Note REPORT#:[id number] REPORT STATUS: Signed DATE:01/25/23 TIME: 2125 PATIENT: SUSU LARA UNIT #: [id number] ROOM/BED: 2004- : 86 AGE: 37 SEX: F ATTEND: Janelle Delarosa MD ADM AUTHOR: Madison Taylor MD * ALL edits or amendments must be made on the el ectronic/computer document * Subjective Free Text Subj Notes Free Text Subj Notes: Late entry note. I was asked by Dr Delarosa to assist on the primary low transverse for this [patient in my role as the OB Hospialist numerical control router operator for that night. Electronically Signed by Madison Taylor MD on 01/16 at 2128 RPT #:[id number] END OF REPORT 2022-12-25 13:58:00-00:00 [id number] [facility] [address], [place] [address] PATIENT NAME: SUSU LARA ADMIT DATE: 12/15/22 ACCOUNT NO: [id number] ROOM NO: .2005 AGE: 37 SEX: F ADMITTING PHYSICIAN: Janelle Delarosa MD ATTENDING PHYSICIAN: Janelle Delarosa MD ADMISSION DATE: 12/15/2022 23:30:00 DISCHARGE DATE: 12/20/2022 12:34:00 DIAGNOSES: A 39-week , spontaneous rupt ure of membranes, failure to descend, macrosomia and multiparity, desires per manent sterilization. PROCEDURES: Primary low transverse sect ion ____ bilateral tubal ligation via Filshie clamps. HOSPITAL COURSE: The patient was admitted and wa s in labor after noted inability to descend with pushing. The patient a wake, taken to the operating room and underwent a primary low transverse cesa rean section with bilateral tubal ligation and then delivered a male , weighing 10 pounds 13 ounces, Apgars 4 and 8. Cord gases are in the chart. Day of delivery, the patient was placed on a regular diet. Postop day #1, Joshi a nd IV discontinued and the patient was placed on a regular diet. Th e patient continued to do well and was discharged to home on postop day #4 without comp lications. INSTRUCTIONS: The patient's discharge diet, no r estrictions. Medications per printed materials. Follow up with Dr. Delarosa in 6 days for removal of MELVINA dressing and monty with Steri-Strips to be madonna david. MEDICATIONS: [place], vitamins and Motrin . Dictated By: Janelle Delarosa MD Date Dictated: 12/25/2022 13:58:15 Date Transcribed: 12/25/2022 21:14:18 DDB/PAR/DIT/SAT Receipt ID: [id number] Authenticated by Janelle Delarosa MD On 12/27/2022 07:28:53 PM Electronically Signed by Janelle Delarosa MD on 10/09 at 0729 PATIENT NAME: SUSU LARA 2022-12-20 09:34:00-00:00 [facility] ([facility]) OB Postpart Progr Note REPORT#:[id number] REPORT STATUS: Signed DATE:12/20/22 TIME: 933 PATIENT: SUSU LARA UNIT #: [id number] ROOM/BED: : 86 AGE: 37 SEX: F ATTEND: Janelle Delarosa MD ADM AUTHOR: Lubna Hill MD * ALL edits or amendments must be made on the [employer]/computer document * Subjective Subjective Admission EGA: Weeks: 39 Days: 1 EGA at delivery (wks/days): 39 weeks (1d) Status/day: post operative (d4 s/p PCS + BTL) Patient reports: Patient reports: Yes: normal lochia, pain management effective, tolerating po well, voiding well, voiding without pain, tolerating ambulatio n, flatus. No: complaints, nausea, vomiting, excessive bleeding, abdominal pain. Comments: Denies CP, palpitations, SOB Objective Nursing Documentation Review Nursing data: The data set between the solid lines has been im ported from nursing documentation. Any exceptions have been noted be low under Provider comments. Feeding preference: Post hemorrhage risk score: Low Risk for Hemorrhage. Provider comments on imported nursing data: [] General VS: Vital Signs Date Temp Pulse Resp B/P B/P Mean Pulse Ox FiO2 03/-12/20 97.7-98.3 86-125 18 127-152/65-97 95 .3-101.0 96-97 Last Documented: Result Date Time B/P 130/83 12/21 827 B/P Mean 98.4 12/21 827 Temp 97.7 12/20 08 Pulse 101 12/20 0828 Resp 18 12/21 827 Pulse Ox 97 12/20 0320 PATIENT WEIGHT: Weight (lb): 265 Weight (oz): 10.51 Weight (kg): 120.500 Physical Exam Breasts: Breasts: filling Lungs: unlabored breathing Neuro: Exam: alert, oriented x3 Abdomen: soft, no abnormal tenderness, no guardi ng, no rebound tenderness Incision site: dressing clean dry (MELVINA in place ) Uterus: involution appropriate Fundus: firm, below the umbilicus, non-tender Lochia: normal Lower extremities: Edema: 1+ pitting Calf tenderness: negative Results Findings/data: Laboratory Tests Test Result Date Time Blood Gas Capillary pH (7.35 - 7.45) 7.250 L 12/17 2011 Capillary pCO2 (mmHg) 52.9 12/17 2011 Capillary HCO3 (meq/L) 22.7 12/17 2011 Capillary Base Excess -5.1 12/17 2011 Patient On Oxygen CBLV 12/17 2011 O2 Delivery Device RA 12/17 2011 Chemistry Sodium (135 - 145 mEq/L) 136 12/155 Potassium (3.5 - 5.0 mEq/L) 4.1 12/155 Chloride (100 - 115 mEq/L) 103 12/15 2245 Carbon Dioxide (22 - 31 mEq/L) 23 12/15 2244 Anion Gap (10 - 20) 14.20 12/15 2245 BUN (7 - 18 mg/dL) 8 12/15 2245 Creatinine (0.5 - 1.0 mg/dL) 0.5 12/15 2245 Glomerular Filtr Rate (>60 ml/min) 125 12/15 2 245 Glucose (65 - 110 mg/dL) 88 12/15 2245 Calcium (8.4 - 10.2 mg/dL) 9.6 12/15 2245 Total Bilirubin (0.2 - 1.0 mg/dL) 0.3 12/15 224 5 AST (15 - 37 units/L) 14 L 12/15 2245 ALT (12 - 78 units/L) 16 12/15 2245 Total Alk Phosphatase (46 - 116 units/L) 157 H 12/15 2245 Lactate Dehydrogenase (81 - 234 units/L) 159 0 12/155 Total Protein (6.3 - 8.2 gm/dL) 6.6 12/15 2245 Albumin (3.4 - 4.8 gm/dL) 2.6 L 12/15 2244 Hematology WBC (6.5 - 12.3 K/mm3) 11.6 12/155 RBC (3.51 - 4.69 M/mm3) 4.97 H 12/15 2245 Hgb (10.1 - 13.8 g/dL) 7.8 L 12/19 0903 Hct (32.5 - 41.8 %) 25.1 L 12/19 0803 MCV (84.6 - 96.6 fL) 71.2 L 12/155 MCH (27.3 - 33.9 pg) 22.5 L 12/15 2244 MCHC (32.0 - 34.2 gm/dL) 31.6 L 12/15 2244 RDW (12.2 - 16.3 %) 17.6 H 12/15 2244 Plt Count (134 - 363 K/mm3) 280 12/15 2244 MPV (9.2 - 12.7 fL) 10.7 12/15 2244 Neut % (Auto) (57.9 - 77.3 %) 67.2 12/15 2244 Lymph % (Auto) (14.5 - 29.7 %) 19.1 12/15 2244 [place] % (Auto) (3.6 - 10.2 %) 9.2 12/15 2244 Eos % (Auto) (0.0 - 3.0 %) 1.6 12/15 2244 Baso % (Auto) (0.1 - 0.9 %) 0.5 12/15 2244 Neut # (Auto) (K/mm3) 7.8 12/15 2244 Lymph # (Auto) (K/mm3) 2.2 12/15 2244 [place] # (Auto) (K/mm3) 1.1 12/15 2244 Eos # (Auto) (K/mm3) 0.19 12/15 2244 Baso # (Auto) (K/mm3) 0.1 12/15 2244 Serology Treponema pallidum Ab (NONREACTIVE) NONREACTIVE 12/15 2244 Hep Bs Antigen (NONREACTIVE) NONREACTIVE 12/15 2244 Hepatitis C Antibody (NONREACTIVE) NONREACTIVE 12/15 2244 Hep C Ab Signal/Cutoff (<0.80) 0.11 12/15 2244 HIV 1 2 Antibody (NONREACTIVE) NONREACTIVE 11/19 Rubella Screen (IUnit/ml) 93.1 12/15 2244 Urines Urine Color (YELLOW) YELLOW 12/15 2129 Urine Appearance (CLEAR) CLOUDY A 12/15 2129 Urine pH (5 - 9) 5.0 12/15 2129 Ur Specific Glenvil (1.001 - 1.035) 1.023 12/15 2129 Urine Protein (NEG) 1+ H 12/15 2129 Urine Glucose (UA) (NEG) 1+ H 12/15 2129 Urine Ketones (NEG) NEGATIVE 12/15 2129 Urine Blood (NEG) NEG 12/15 2129 Urine Nitrite (NEG) NEG 12/15 2129 Urine Bilirubin (NEG) NEGATIVE 12/15 2129 Urine Urobilinogen (NEG mg/dL) NEGATIVE 12/15 2 130 Ur Leukocyte Esterase (NEG) 3+ H 12/15 2129 Urine RBC (NONE SEEN #/hpf) 6-10 H 12/150 Urine WBC (NONE SEEN #/hpf) 21-30 H 12/150 Ur Epithelial Cells (RARE - FEW #/HPF) MODERATE H 12/150 Calcium Oxalate Crystal (#/LPF) 21-25 12/15 213 0 Urine Bacteria (RARE - FEW /HPF) RARE 12/15 213 0 Urine Mucus (NONE SEEN) 1+ 12/15 2129 Ur Random Creatinine (mg/dL) 116.0 12/150 U Random Total Protein (mg/dL) 31.6 12/15 2129 Protein/Creatinin Ratio (<200 mg/gcrea) 272.4 H 12/15 2129 Results: labs reviewed, vital signs reviewed, vi pamela signs stable Blood Loss Blood loss at delivery: Blood loss at delivery: <1K: no sx hypovol=no he m Cause of the bleeding: Management that was provided: QBL at delivery: EBL at delivery: 800 Diagnosis, Assessment Plan Diagnosis, Assessment Plan Assessment: nml progress, acute blood loss anemia (pt asx - on PO Iron), PreE- BPs 130/80s on Labetalol 200mg BID Plan: routine care, discharge today, Pt noted to be tachycardic - denies CP/SOB, no dizziness, reports imp rovement today. EKG showing NSR, rpt H H slightly decreased from 2 days ago Consultation(s): Consultation performed: anesthesia Plan discussed with: patient, spouse/partner Electronically Signed by Lubna Hill MD on 0 12/20/22 at 0938 RPT #:[id number] END OF REPORT 2022-12-19 14:08:00-00:00 [id number] [facility] [address], [place] [address] PATIENT NAME: SUSU LARA ADMIT DATE: 12/15/22 ACCOUNT NO: [id number] ROOM NO: AGE: 37 SEX: F ADMITTING PHYSICIAN: Janelle Delarosa MD ATTENDING PHYSICIAN: Janelle Delarosa MD Order: [id number] Test Reason : TACHYCARDIA Test Date/Time Stamp: WedDec 19 2022 14:08:55 Blood Pressure : / mmHG Vent. Rate : 111 BPM Atrial Rate : 111 BPM P-R Int : 158 ms QRS Dur : 072 ms QT Int : 328 ms P-R-T Axes : 033 022 044 degree s QTc Int : 446 ms Sinus tachycardia Poor r wave progression suggestive Anter ior scar, COPD or lead placement error Abnormal ECG No previous ECGs available Confirmed by SUSU FROST MD ([id number]) on 3 4:08:10 PM Referred By: Janelle Delarosa Confirmed by:SUSU Arellano MD Electronically Signed by Susu Frost MD on 0 12/24/22 at 1608 PATIENT NAME: SUSU LARA 2022-12-19 10:27:00-00:00 [facility] ([facility]) OB Postpart Progr Note REPORT#:[id number] REPORT STATUS: Signed DATE:12/19/22 TIME: 1027 PATIENT: SUSU LARA UNIT #: [id number] ROOM/BED: : 86 AGE: 37 SEX: F ATTEND: Janelle Delarosa MD ADM AUTHOR: Marion Aguirre MD * ALL edits or amendments must be made on the [employer] document * See Addendum Subjective Subjective Admission EGA: Weeks: 39 Days: 1 Status/Day: post operative (POD3) Patient reports: Patient reports: Yes no complaints, Yes normal lochia, Yes pain management effective, Yes tolerating po well, Yes voiding well, Ye s voiding without pain, Yes tolerating ambulation, Yes flatus, No nausea, No vomiting Comments: Reports occasional palpitations. Denies CP/SOB. Objective General VS: Vital Signs: Date Time Temp Pulse Resp B/P B/P Pulse O2 O2 F low FiO2 Mean Ox Delivery Rate 12/19 0929 98.2 112 18 138/89 105.3 12/19 0012 98.8 125 18 126/70 88.8 12/18 1605 98.2 100 18 132/84 PATIENT WEIGHT: Weight (lb): 265 Weight (oz): 10.51 Weight (kg): 120.500 Physical Exam Breasts: Feeding: formula Lungs: No increased WOB Neuro: Exam: alert, oriented x3, normal speech Abdomen: soft, no abnormal tenderness, no guardi ng Incision site: MELVINA dressing in place Uterus: firm Fundus: non-tender Lochia: normal Result Findings/Data: Laboratory Tests: 12/19 0903 Hematology Hgb (10.1 - 13.8 g/dL) 7.8 L Hct (32.5 - 41.8 %) 25.1 L Blood Loss Blood loss at delivery: Blood loss at delivery: <1K: no sx hypovol=no he m Cause of the bleeding: Management that was provided: QBL at delivery: EBL at delivery: 800 Diagnosis, Assessment Plan Diagnosis, Assessment Plan Problem List/A P: 1. 39 weeks gestation of 2. Decreased movement 3. Preeclampsia Assessment: nml progress, acute blood loss anemia Plan: routine car e, discharge tomorrow, Anemia- asymptomatic however noted to be tachycardic. Daily iron started EKG showing NSR, rpt H H slightly decreased from 2 days ago olivia call GHTN- BP noted to be slightly elevated today, 150's/90's- started on labetalol 100mg BID at 204 Addendum 1: 12/19/222044 by Marion Aguirre MD Upon chart review, patient noted to be tachycard ic (110's) since admission at 2046 RPT #:[id number] END OF REPORT 2022-12-18 12:47:00-00:00 [facility]) OB Postpart Progr Note REPORT#:[id number] REPORT STATUS: Signed DATE:12/18/22 TIME: 1247 PATIENT: SUSU LARA UNIT #: [id number] ROOM/BED: : 86 AGE: 37 SEX: F ATTEND: Janelle Delarosa MD ADM AUTHOR: Janelle Delarosa MD * ALL edits or amendments must be made on the el [employer]/computer document * Subjective Subjective Admission EGA: Weeks: 39 Days: 1 Status/day: post operative, day 2 Patient reports: Patient reports: No: complaints. Objective Nursing Documentation Review Nursing data: The data set between the solid lines has been im ported from nursing documentation. Any exceptions have been noted be low under Provider comments. Feeding preference: Post hemorrhage risk score: Low Risk for Hemorrhage. Provider comments on imported nursing data: [] General VS: Vital Signs Date Temp Pulse Resp B/P B/P Mean Pulse Ox FiO2 12/17-12/18 97.7-98.1 99-100 18 121-135/64-79 9 3.2 96 Last Documented: Result Date Time Pulse Ox 96 12/18 0752 B/P 121/79 12/18 0752 B/P Mean 93.2 12/182 Temp 97.7 12/18 075 Pulse 99 12/18 075 Resp 18 12/182 PATIENT WEIGHT: Weight (lb): 265 Weight (oz): 10.51 Weight (kg): 120.500 Medications: Active Meds + DC'd Last 24 Hrs Ibuprofen (IBUPROFEN 600 MG TAB) 600 MG Q6H PRN PRN PO Acetaminophen (ACETAMINOPHEN 325 MG TAB) 650 MG Q6H PRN PRN PO Ketorolac Tromethamine (TORADOL 10 MG TAB) 10 MG Q6H PRN PRN PO Docusate Sodium (DOCUSATE SODIUM 100 MG CAP) 200 MG BEDTIME PO Oxycodone HCl (OXYIR 5MG TAB) 5 MG Q4H PRN PRN P O Oxycodone HCl (Oxycodone HCl 10 MG IR) 10 MG Q4H PRN PRN PO Multivit/Folic Acid/Iron ( Lynn min Tablet) 1 TAB DAILY PO Ondansetron Base (ZOFRAN ODT 4MG) 4 MG Q6H PRN P RN PO Ondansetron HCl (ZOFRAN 2 MG/ML 4 MG SYR) 4 MG Q 6H PRN PRN IV Ibuprofen (IBUPROFEN 600 MG TAB) 600 MG Q6H PO Acetaminophen (ACETAMINOPHEN 325 MG TAB) 650 MG Q6H PO Al Hydrox/Mg Hydrox/Simethicone (MYLANTA 30 ML S LONGTERM) 30 ML ASDIR PRN PO Dextrose/Lactated Ringer's (DEXTROSE 5% IN LACTA BRYAN RINGERS 1000 ML) 1,000 ML ASDIR IV (DC) Diphtheria/Pertussis/Tetanus Vacc (ADACEL VACCIN E) 0.5 ML ASDIR IM Hydralazine HCl (hydrALAZINE HCL 20MG) 5 MG ONCE PRN IV Hydralazine HCl (hydrALAZINE HCL 20MG) 10 MG ASD IR PRN IV Hydrocortisone (HYDROCORTISONE 1% TOP CREAM 30 G M) 1 APPL ASDIR PRN TOPICAL Hydrocortisone/Pramoxine (ANALPRAM HC 2.5% CRM S INGLES) 1 GM ASDIR PRN RECTAL (CKD) Hydroxyzine HCl (ATARAX) 25 MG Q6H PRN PRN PO Labetalol HCl (NORMODYNE 100 MG/20 ML VIAL) 20 M G ASDIR PRN IV Labetalol HCl (NORMODYNE 100 MG/20 ML VIAL) 40 M G ASDIR PRN IV Magnesium Hydroxide (MILK OF MAGNESIA 30 ML UD) 30 ML BID PRN PRN PO Measles/Mumps/Rubella Vaccine Live (M-M-R II VAC CINE W DILUENT) 0.5 ML BEFORE DISCHG PRN SUBQ Methylergonovine Maleate (METHERGINE 0.2 MG/ML 1 ML AMP) 0.2 MG ASDIR PRN IM Nalbuphine HCl (NALBUPHINE HCL 10 MG/ML 1 ML AMP ) 2 MG Q4H PRN PRN IV Nalbuphine HCl (NALBUPHINE HCL 10 MG/ML 1 ML AMP ) 4 MG Q4H PRN PRN IV Naloxone HCl (NALOXONE HCL 0.4 MG/ML 1 ML VIAL) 0.4 MG ANES ASDIR PRN IV Neomycin/Polymyxin/Bacitracin (TRIPLE ANTIBIOTIC 0.94 GM) 1 APPLIC BID PRN TOPICAL Polyethylene Glycol (POLYETHYLENE GLYCOL PKT) 17 GM DAILY PRN PRN PO Promethazine HCl (PROMETHAZINE HCL) 25 MG Q6H MD N PRN PO Simethicone (SIMETHICONE 80 MG TAB) 80 MG PC HS PRN PRN PO Tranexamic Acid (Tranexamic Acid) 1,000 MG ASDIR PRN IV Sodium Chloride (SODIUM CHLORIDE 0.9% 100 mL MB P) 100 ML Physical Exam Lungs: unlabored breathing Abdomen: normoactive bowel sounds Incision site: dressing clean dry Fundus: firm, at the umbilicus Lochia: normal Diagnosis, Assessment Plan Diagnosis, Assessment Plan Problem List/A P: 1. 39 weeks gestation of 2. Decreased movement 3. Preeclampsia Assessment: nml progress, acute blood loss anemia Plan: routine care, discharge tomorro w Electronically Signed by Janelle Delarosa MD on 01/07 at 1250 [facility] #:[id number] END OF REPORT 2022-12-17 12:14:00-00:00 [id number] [facility] [address] [address] PATIENT NAME: SUSU LARA ADMIT DATE: 12/15/22 ACCOUNT NO: [id number] ROOM NO: .2005 AGE: 37 SEX: F ADMITTING PHYSICIAN: Janelle Delarosa MD ATTENDING PHYSICIAN: Janelle Delarosa MD OPERATION DATE: 12/16/2022 PREOPERATIVE DIAGNOSES: 1. A 39-week . 2. Spontaneous rupture of membranes. 3. Failure to descend. 4. Possible macrosomia. 5. Multiparity, desiring permanent sterilization . POSTOPERATIVE DIAGNOSES: 1. A 39-week . 2. Spontaneous rupture of membranes. 3. Failure to descend. 4. Macrosomia. PROCEDURE: Primary low transverse secti on and bilateral tubal ligation. SURGEON: Janelle Delarosa M.D. RETAIL ASSISTANT STORE MANAGER: ____ Hospitalist. ANESTHESIA: FINDINGS: Male infant weighing 10 pounds 13 ounc es, Apgars of 4 and 8. Cord blood was collected and is listed in the chart. Male infant. OPERATION IN DETAIL: Epidura l anesthesia had been placed in the course of labor and the patient was noted to have failure to pro harish despite adequate contraction pattern and pushing, decisio n was made to proceed to the operating room. Epidural was brought into an adequ ate level for section and the patient was prepped and draped in the usual ster ile fashion. A low transverse abdominal incision was performed without difficu lty. After going through the layers of adipose tissue, the abdomen was entere d without difficulty. Bladder flap was created for lower u terine segment. Low transverse uterine incision was performed and surgeon's hand was placed in the uterus. The infant was actually quite low in the pelvis, so after extensive manipulation, the infant's head was brought into the surgical field and delivered in standard vertex position, handed to awaiting nurse, who called for neonato logy. The received Apgars of 4 at one and 8 at five minutes. Cord g ases were obtained; see chart for details. Placenta was ma nually removed and uterine incision was closed with 0 Vicryl in a running manner. After a second imb ricating stitch was placed, hemostasis noted to be excellent. Each pericolic gutter was cleaned of all PATIENT NAME: SUSU LARA clots and attention was turned to the tu bal ligation. The right fallopian tube was grasped with [place] clamp. Filshie clamp was placed on both the right and left side of the Chirag clamp in the middle one -third avascular portion. Hemostasis noted to be excellent. The exact same procedure was carried on the opposite side. Hemostasis on the uterine incision was still good and peritoneum was closed with 2-0 Vicryl in a running manner. Muscles reapproximated in the midline with 0 Vicryl in a running manner. Muscl e was noted to be hemostatic. Fascia was closed with 0 Vicryl in a running man ner. Adipose tissue was noted to be hemostatic. Dayanara's fascia was closed wit h 2-0 Vicryl in a running manner and monty were placed. MELVINA dressing wa s placed and noted to be working well. Estimated blood loss for the entir e procedure was 800 mL. Sponge, instrument and needle counts were correc t at the end of the case. The patient was taken to the recovery room w mich Joshi draining clear yellow urine. Dictated By: Janelle Delarosa MD Date Dictated: 12/17/2022 12:14:20 Date Transcribed: 12/17/2022 13:05:54 DDB/CRISTA/ANDREW/ANDREW Receipt ID: [id number] Authenticated by Janelle Delarosa MD On 12/25/2022 01:55:03 PM Electronically Signed by Janelle Delarosa MD on 08/09 at 0155 PATIENT NAME: SUSU LARA 2022-12-17 12:00:00-00:00 [facility] ([facility]) OB Postpart Progr Note REPORT#:[id number] REPORT STATUS: Signed DATE:12/17/22 TIME: 1200 PATIENT: SUSU LARA UNIT #: [id number] ROOM/BED: : 86 AGE: 37 SEX: F ATTEND: Janelle Delarosa MD ADM AUTHOR: Janelle Delarosa MD * ALL edits or amendments must be made on the [employer]computer document * Subjective Subjective Admission EGA: Weeks: 39 Days: 1 Status/day: post operative, day1 Patient reports: Patient reports: No: complaints. Objective Nursing Documentation Review Nursing data: The data set between the solid lines has been im ported from nursing documentation. Any exceptions have been noted be low under Provider comments. Feeding preference: Post hemorrhage risk score: High Risk for Hemorrhage. Provider comments on imported nursing data: [] General VS: Vital Signs Date Temp Pulse Resp B/P B/P Mean Pulse Ox FiO2 /-12/17 97.7-100.3 90-166 19-33 110-162/52-1 74.0-121.0 93-97 03 Last Documented: Result Date Time Pulse Ox 97 12/17 0754 B/P 114/69 12/17 0754 B/P Mean 83.8 12/17 0754 Temp 97.7 12/17 0754 Pulse 90 12/17 0754 Resp 19 12/17 0754 PATIENT WEIGHT: Weight (lb): 265 Weight (oz): 10.51 Weight (kg): 120.500 Medications: Active Meds + DC'd Last 24 Hrs Ibuprofen (IBUPROFEN 600 MG TAB) 600 MG Q6H PRN PRN PO Acetaminophen (ACETAMINOPHEN 325 MG TAB) 650 MG Q6H PRN PRN PO Docusate Sodium (DOCUSATE SODIUM 100 MG CAP) 200 MG BEDTIME PO Oxycodone HCl (OXYIR 5MG TAB) 5 MG Q4H PRN PRN P O Oxycodone HCl (Oxycodone HCl 10 MG IR) 10 MG Q4H PRN PRN PO Multivit/Folic Acid/Iron ( Lynn min Tablet) 1 TAB DAILY PO Ondansetron Base (ZOFRAN ODT 4MG) 4 MG Q6H PRN P RN PO Ondansetron HCl (ZOFRAN 2 MG/ML 4 MG SYR) 4 MG Q 6H PRN PRN IV Ibuprofen (IBUPROFEN 600 MG TAB) 600 MG Q6H PO Acetaminophen (ACETAMINOPHEN 325 MG TAB) 650 MG Q6H PO Al Hydrox/Mg Hydrox/Simethicone (MYLANTA 30 ML S LONGTERM) 30 ML ASDIR PRN PO Dextrose/Lactated Ringer's (DEXTROSE 5% IN LACTA BRYAN RINGERS 1000 ML) 1,000 ML ASDIR IV Diphtheria/Pertussis/Tetanus Vacc (ADACEL VACCIN E) 0.5 ML ASDIR IM Hydralazine HCl (hydrALAZINE HCL 20MG) 5 MG ONCE PRN IV Hydralazine HCl (hydrALAZINE HCL 20MG) 10 MG ASD IR PRN IV Hydrocortisone (HYDROCORTISONE 1% TOP CREAM 30 G M) 1 APPL ASDIR PRN TOPICAL Hydrocortisone/Pramoxine (ANALPRAM HC 2.5% CRM S INGLES) 1 GM ASDIR PRN RECTAL (CKD) Hydroxyzine HCl (ATARAX) 25 MG Q6H PRN PRN PO Labetalol HCl (NORMODYNE 100 MG/20 ML VIAL) 20 M G ASDIR PRN IV Labetalol HCl (NORMODYNE 100 MG/20 ML VIAL) 40 M G ASDIR PRN IV Magnesium Hydroxide (MILK OF MAGNESIA 30 ML UD) 30 ML BID PRN PRN PO Measles/Mumps/Rubella Vaccine Live (M-M-R II VAC CINE W DILUENT) 0.5 ML BEFORE DISCHG PRN SUBQ Methylergonovine Maleate (METHERGINE 0.2 MG/ML 1 ML AMP) 0.2 MG ASDIR PRN IM Nalbuphine HCl (NALBUPHINE HCL 10 MG/ML 1 ML AMP ) 2 MG Q4H PRN PRN IV Nalbuphine HCl (NALBUPHINE HCL 10 MG/ML 1 ML AMP ) 4 MG Q4H PRN PRN IV Naloxone HCl (NALOXONE HCL 0.4 MG/ML 1 ML VIAL) 0.4 MG ANES ASDIR PRN IV Neomycin/Polymyxin/Bacitracin (TRIPLE ANTIBIOTIC 0.94 GM) 1 APPLIC BID PRN TOPICAL Polyethylene Glycol (POLYETHYLENE GLYCOL PKT) 17 GM DAILY PRN PRN PO Promethazine HCl (PROMETHAZINE HCL) 25 MG Q6H MD N PRN PO Simethicone (SIMETHICONE 80 MG TAB) 80 MG PC HS PRN PRN PO Tranexamic Acid (Tranexamic Acid) 1,000 MG ASDIR PRN IV Sodium Chloride (SODIUM CHLORIDE 0.9% 100 mL MB P) 100 ML Ketorolac Tromethamine (TORADOL 30 MG SYRINGE) 0 .STK-MED ONE .ROUTE (DC ) Ketamine HCl (Ketamine HCl 50 MG/ML 10 ML) 0 .ST K-MED ONE .ROUTE (DC) Midazolam HCl (VERSED 2 MG/2 ML VIAL) 0 .STK-MED ONE .ROUTE (DC) Acetaminophen (TYLENOL EXTRA STRENGTH) 1,000 MG PACU ONCE PRN PO (DC) Hydroxyzine HCl (ATARAX) 25 MG PACU ASDIR PRN P RN IM (DC) Ketorolac Tromethamine (TORADOL 15 MG VIAL) 15 M G PACU Q6H PRN PRN IV ( DC) Meperidine HCl (MEPERIDINE HCL 25MG/ML SYR) 25 M G PACU Q5MIN PRN PRN IV (DC) Naloxone HCl (NALOXONE HCL 0.4 MG/ML 1 ML VIAL) 0.4 MG PACU ONCE PRN PRN IV (DC) Naloxone HCl (NALOXONE HCL 0.4 MG/ML 1 ML VIAL) 0.05 MG PACU ASDIR PRN PRN IV (DC) Ondansetron HCl (ZOFRAN 2 MG/ML 4 MG SYR) 4 MG P ACU ONCE PRN IV (DC) Promethazine HCl (PROMETHAZINE HCL 25 MG) 12.5 M G PACU ONCE PRN IM (DC) Morphine Sulfate (Duramorph 5 MG/10 ML Ampule) 0 .STK-MED ONE .ROUTE (DC ) Oxytocin (Pitocin 10 units/1 mL Inj) 0 .STK-MED ONE .ROUTE (DC) Fentanyl Citrate (SUBLIMAZE 2 ML) 0 .STK-MED ONE .ROUTE (DC) Famotidine (PEPCID 10 MG/ML 2ML VIAL) 20 MG PREO P IV (DC) Sodium Chloride (SODIUM CHLORIDE 0.9% PF) 10 ML ASDIR IV (DC) Scopolamine (TRANSDERM-SCOP PATCH) 0 .STK-MED ON E .ROUTE (DC) Butorphanol Tartrate (STADOL 2 MG/ML 1 ML) 2 MG Q4H PRN PRN IV (DC) Ephedrine Sulfate (ePHEDrine SULFATE 50 MG/ML 1M L AMP) 10 MG ASDIR PRN IV (DC) Fentanyl/Bupivacaine HCl (fentaNYL 2mcg/ml-BUPIV ACAINE 0.1% NS 0.9%-100) 100 ML ASDIR EPIDURAL (DC) Lactated Ringer's (LACTATED RINGERS) 250 ML ASDI R IV (DC) Ondansetron HCl (ZOFRAN 2 MG/ML 4 MG SYR) 4 MG Q 6H PRN PRN IV (DC) Acetaminophen (TYLENOL EXTRA STRENGTH) 1,000 MG PREOP PRN PO (DC) Azithromycin (ZITHROMAX IV 500MG) 500 MG PREOP I V (DC) Sodium Chloride (SODIUM CHLORIDE 0.9% - 250 ML) 250 ML Carboprost Tromethamine (HEMABATE 250 MCG/ML AMP ) 250 MCG Q15M PRN PRN IM (DC) Cefazolin Sodium (ANCEF 2 GM VIAL) 2 GM PREOP IV (DC) Sodium Chloride (SODIUM CHLORIDE 0.9% 100 mL MB P) 100 ML Dextrose/Lactated Ringer's (DEXTROSE 5% IN LACTA BRYAN RINGERS 1000 ML) 1,000 ML ASDIR IV (DC) Hydralazine HCl (hydrALAZINE HCL 20MG) 5 MG ONCE PRN IV (DC) Hydralazine HCl (hydrALAZINE HCL 20MG) 10 MG ASD IR PRN IV (DC) Labetalol HCl (NORMODYNE 100 MG/20 ML VIAL) 20 M G ASDIR PRN IV (DC) Labetalol HCl (NORMODYNE 100 MG/20 ML VIAL) 40 M G ASDIR PRN IV (DC) Lidocaine HCl (LIDOCAINE HCL 1% INJ 5 ML PF VIAL ) DIRECTED ONCE PRN IV (DC) Loperamide HCl (LOPERAMIDE HCL 2 MG CAP) 4 MG DIR PRN PO (DC) Methylergonovine Maleate (METHERGINE 0.2 MG/ML 1 ML AMP) 0.2 MG ASDIR PRN IM (DC) Misoprostol (CYTOTEC 200MCG TAB) 1,000 MCG ASDIR PRN RECTAL (DC) Omeprazole/Sodium Bicarbonate (ZEGERID 20 MG CAP NINO) 2 CAP PREOP PRN PO (DC) Ondansetron HCl (ZOFRAN 2 MG/ML 4 MG SYR) 4 MG Q 6H PRN PRN IV (DC) Ondansetron HCl (ZOFRAN 2 MG/ML 4 MG SYR) 4 MG P REOP PRN IV (DC) Oxytocin (Pitocin 10 units/1 mL Inj) 10 UNITS ON CE PRN IM (DC) Oxytocin/Sodium Chloride (Oxytocin 15 units/NS 2 50 mL) 250 ML ASDIR IV ( DC) Oxytocin/Sodium Chloride (Oxytocin 15 units/NS 2 50 mL) 250 ML ASDIR PRN IV (DC) Pharmacy Profile Note (EPIDURAL TRAY) 1 EA ASDIR MISC (DC) Promethazine HCl (PROMETHAZINE HCL 25 MG) 25 MG Q4H PRN PRN IM (DC) Scopolamine (TRANSDERM-SCOP PATCH) 1 MG PREOP MD N TRANSDERM (DC) Terbutaline Sulfate (TERBUTALINE 1 MG/ML 1 ML AM P) 0.25 MG ONCE PRN SUBQ (DC) Tranexamic Acid (Tranexamic Acid) 1,000 MG ASDIR PRN IV (DC) Sodium Chloride (SODIUM CHLORIDE 0.9% 100 mL MB P) 100 ML Loperamide HCl (LOPERAMIDE HCL 2 MG CAP) 2 MG Q4 H PRN PRN PO (DC) Notes: tilt neg Dietitian nutrition assessment The data set between the solid lines has been im ported from the dietitian's assessment. BMI Calculated: 45.48 Nutrition related diagnosis: Nutrition diagnosis details: Nutrition problem: Nutrition etiology: Nutrition signs and symptoms: Nutrition prescription: Dietitian name: Assessment completed: Physical Exam Lungs: unlabored breathing Abdomen: normoactive bowel sounds Incision site: dressing clean dry Fundus: firm, at the umbilicus Lochia: normal Results Findings/data: Laboratory Tests: 12/17 Blood Gas Capillary pH (7.35 - 7.45) 7.250 L 7.162 *L Capillary pCO2 (mmHg) 52.9 64.5 Capillary HCO3 (meq/L) 22.7 22.6 Capillary Base Excess -5.1 -7.2 Patient On Oxygen CBLV CBLA O2 Delivery Device RA RA Hematology Hgb (10.1 - 13.8 g/dL) 9.1 L Hct (32.5 - 41.8 %) 29.4 L Diagnosis, Assessment Plan Diagnosis, Assessment Plan Problem List/A P: 1. 39 weeks gestation of 2. Decreased movement 3. Preeclampsia Assessment: nml progress, acute blood loss anemia Plan: routine care, circumcision toda y, discharge tomorrow Electronically Signed by Janelle Delarosa MD on 12/10 at 1202 RPT #:[id number] END OF REPORT 2022-12-16 21:06:00-00:00 [facility] ([facility]) OB Delivery Note REPORT#:[id number] REPORT STATUS: Signed DATE:12/16/22 TIME: 2105 PATIENT: SUSU LARA UNIT #: [id number] ROOM/BED: [address] : [address] AGE: 37 SEX: F ATTEND: Janelle Delarosa MD ADM AUTHOR: Janelle Delarosa MD * ALL edits or amendments must be made on the el [employer]/computer document * OB Delivery Nursing Documentation Review Nursing data: The data set between the solid lines has been im ported from nursing documentation. Any exceptions have been noted be low under Provider comments. _ ROM date: 12/16/22 ROM time: 422 Membranes rupture method: SROM Amniotic fluid color: Clear Amniotic fluid amount: Steroids prior to arrival: Antibiotic prophylaxis given: Yes Post hemorrhage risk score: Medium Risk f or Hemorrhage Delivery date A: Delivery time A: Birthweight (gm) A: Weight (lb) A: Weight (oz) infant A: Gender A: Male 1 minute A: 5 minutes infant A: 10 minutes A: Cord pH obtained A: Vacuum time infant A: Vacuum # pulls infant A: Vacuum # popoffs infant A: QBL at delivery: __ Provider comments on imported nursing data: [] Pre-delivery Admission EGA: Weeks: 39 Days: 1 Blood Loss/Details Blood loss at delivery: <1K: no sx hypovol=no he m EBL at delivery (ml's): 800 Baby A Information Baby A information Delivery date: 12/16/22 status: live born Wt of baby (lbs/oz): 10 13 Gender: male 1 minute: 4 5 minutes: 8 Presentation: vertex ABG details Baby A Cord blood gases: collected Nuchal cord Baby A Nuchal cord: no Op/Inv Proc Note - Brief )( Procedure(s) performed: prim low transverse c /s, bilateral tubal ligation )( Primary Surgeon: omar delarosa )( Warehouse Supervisor 3Rd Shift(s): hospitalist )( Estimated blood loss (ml): 800 Delivery Delivery section indication: 2nd stage arrest of labor Priority: emergent Uterine incision: low transverse Uterine scar: intact Consent: indication discussed, questions answer ed, pt consent to op delivery Mother's condition: mother stable 's condition: infant stable in room Electronically Signed by Janelle Delarosa MD on 11/09 at 2110 RPT #:[id number] END OF REPORT 2022-12-16 19:03:00-00:00 [facility] ([facility]) Clinical Note REPORT#:[id number] REPORT STATUS: Signed DATE:12/16/22 TIME: 1903 PATIENT: SUSU LARA UNIT #: [id number] ROOM/BED: [address] : 86 AGE: 37 SEX: F ATTEND: Janelle Delarosa MD ADM AUTHOR: Janelle Delarosa MD * ALL edits or amendments must be made on the [employer] document * Clinical Note Note: cx c/c/+2 with poor pushing due to pain.Whe epidural redosed then pt is so numb she can not push Attempetted to place lorenzana fo rceps unable to place in the correct postion dw pt and family who agree to cs Pt also desires BTL. WE discussed this request d uring pregnacy . Electronically Signed by Janelle Delarosa MD on 11/09 at 1907 RPT #:[id number] END OF REPORT 2022-12-16 09:43:00-00:00 [facility] ([facility]) OB Admission / H P REPORT#:[id number] REPORT STATUS: Signed DATE:12/16/22 TIME: 942 PATIENT: SUSU LARA UNIT #: [id number] ROOM/BED: [address] : 86 AGE: 37 SEX: F ATTEND: Janelle Delarosa MD ADM AUTHOR: Janelle Delarosa MD * ALL edits or amendments must be made on the [employer] document * OB History Nursing Documentation Review Nursing data: The data set between the solid lines has been im ported from nursing documentation. Any exceptions have been noted be low under Provider comments. Current data Steroids prior to arrival: ROM date: 12/16/22 ROM time: 422 EDC date: 12/21/22 Gestational age (labor triage): Post hemorrhage risk score: Medium Risk f or Hemorrhage Prior history : 4 Para: 3 Term: : Abortions spontaneous: Abortions induced: Living children: Ectopic: Stillbirths: Live births: deaths: Number of previous C/S: Reported maternal labs/data Blood type: O Rh type: Positive Rubella: Hepatitis B: Negative HIV exposure test: Negative VDRL: Group B beta strep: Negative Rho(D) immune globulin this preg: Monitor mode - UA: Feeding preference: Provider comments on imported nursing data: [] Chief complaint: suspected ruptured memb , uterine contractions, elevated blood pressure, decreased movement history: : 4 Term: 3 Living children: 3 Previous : none Current : Admission EGA (weeks) 39 Admission EGA (days) 1 Labs: Blood type: A Rh: positive Rubella: immune Hepatitis B: negative HIV: negative STD: negative Syphilis: currently negative GBS: negative Procedures: ultrasound Past History Smoking status for patients 13 years old or olde r: Never Smoker Allergies: Coded Allergies: No Known Allergies (12/14/22) Objective General VS: Last Documented: Result Date Time B/P Mean 82.0 12/16 0852 B/P 111/66 12/16 0852 Pulse 95 12/16 0852 Temp 97.9 12/16 0738 Resp 20 12/15 2158 Vital Signs Date Temp Pulse Resp B/P B/P Mean Pulse Ox FiO2 12/15-12/16 97.9-98.4 95-122 20 111-148/56-95 78 .0-115.0 PATIENT WEIGHT: Weight (lb): 265 Weight (oz): 10.51 Weight (kg): 120.500 Physical Exam Lungs: unlabored breathing Abdomen: gravid, soft Uterine activity: Monitor: IUPC Frequency (description): regular Pelvic exam: Pelvis clinically adequate: yes Cervical/ exam: Dilatation (cm): 6 Effacement (%): 80 station: - 1 presentation: cephalic Membranes: Membranes: SROM Baby A: Baby A FHR category: category 1 Results Findings/Data: Laboratory Tests: 12/15 12/15 12/15 2245 2130 2130 Chemistry Sodium (135 - 145 mEq/L) 136 Potassium (3.5 - 5.0 mEq/L) 4.1 Chloride (100 - 115 mEq/L) 103 Carbon Dioxide (22 - 31 mEq/L) 23 Anion Gap (10 - 20) 14.20 BUN (7 - 18 mg/dL) 8 Creatinine (0.5 - 1.0 mg/dL) 0.5 Glomerular Filtr Rate (>60 ml/min) 125 Glucose (65 - 110 mg/dL) 88 Calcium (8.4 - 10.2 mg/dL) 9.6 Total Bilirubin (0.2 - 1.0 mg/dL) 0.3 AST (15 - 37 units/L) 14 L ALT (12 - 78 units/L) 16 Total Alk Phosphatase (46 - 116 units/L) 157 H Lactate Dehydrogenase (81 - 234 units/L) 159 Total Protein (6.3 - 8.2 gm/dL) 6.6 Albumin (3.4 - 4.8 gm/dL) 2.6 L Hematology WBC (6.5 - 12.3 K/mm3) 11.6 RBC (3.51 - 4.69 M/mm3) 4.97 H Hgb (10.1 - 13.8 g/dL) 11.2 Hct (32.5 - 41.8 %) 35.4 MCV (84.6 - 96.6 fL) 71.2 L MCH (27.3 - 33.9 pg) 22.5 L MCHC (32.0 - 34.2 gm/dL) 31.6 L RDW (12.2 - 16.3 %) 17.6 H Plt Count (134 - 363 K/mm3) 280 MPV (9.2 - 12.7 fL) 10.7 Neut % (Auto) (57.9 - 77.3 %) 67.2 Lymph % (Auto) (14.5 - 29.7 %) 19.1 [place] % (Auto) (3.6 - 10.2 %) 9.2 Eos % (Auto) (0.0 - 3.0 %) 1.6 Baso % (Auto) (0.1 - 0.9 %) 0.5 Neut # (Auto) (K/mm3) 7.8 Lymph # (Auto) (K/mm3) 2.2 [place] # (Auto) (K/mm3) 1.1 Eos # (Auto) (K/mm3) 0.19 Baso # (Auto) (K/mm3) 0.1 Serology Treponema pallidum Ab (NONREACTIVE) NONREACTIVE Hep Bs Antigen (NONREACTIVE) NONREACTIVE Hepatitis C Antibody (NONREACTIVE) NONREACTIVE Hep C Ab Signal/Cutoff (<0.80) 0.11 HIV 1 2 Antibody (NONREACTIVE) NONREACTIVE Rubella Screen (IUnit/ml) 93.1 Urines Urine Color (YELLOW) YELLOW Urine Appearance (CLEAR) CLOUDY A Urine pH (5 - 9) 5.0 Ur Specific Glenvil (1.001 - 1.035) 1.023 Urine Protein (NEG) 1+ H Urine Glucose (UA) (NEG) 1+ H Urine Ketones (NEG) NEGATIVE Urine Blood (NEG) NEG Urine Nitrite (NEG) NEG Urine Bilirubin (NEG) NEGATIVE Urine Urobilinogen (NEG mg/dL) NEGATIVE Ur Leukocyte Esterase (NEG) 3+ H Urine RBC (NONE SEEN #/hpf) 6-10 H Urine WBC (NONE SEEN #/hpf) 21-30 H Ur Epithelial Cells (RARE - FEW #/HPF) MODERATE H Calcium Oxalate Crystal (#/LPF) 21-25 Urine Bacteria (RARE - FEW /HPF) RARE Urine Mucus (NONE SEEN) 1+ Ur Random Creatinine (mg/dL) 116.0 U Random Total Protein (mg/dL) 31.6 Protein/Creatinin Ratio (<200 mg/gcrea) 272.4 H Diagnosis, Assessment Plan Diagnosis, Assessment Plan Problem List/A P: 1. 39 weeks gestation of 2. Decreased movement 3. Preeclampsia Plan: induction of labor, delivery Electronically Signed by Janelle Delarosa MD on 11/09 at 0947 RPT #:[id number] END OF REPORT 2022-12-16 09:24:00-00:00 [facility]) OB Intrapart Prog Note REPORT#:[id number] REPORT STATUS: Signed DATE:12/16/22 TIME: 923 PATIENT: SUSU LARA UNIT #: [id number] ROOM/BED: [address] : 86 AGE: 37 SEX: F ATTEND: Janelle Delarosa MD ADM AUTHOR: Janelle eDlarosa MD * ALL edits or amendments must be made on the el [employer]/computer document * Subjective Subjective Admission EGA (wks/days): 39 weeks Patient reports: Patient reports: Yes contractions, Yes decreased movement Objective Nursing Documentation Review Nursing data: The data set between the solid lines has been im ported from nursing documentation. Any exceptions have been noted be low under Provider comments. __ ROM date: 12/16/22 ROM time: 422 __ Provider comments on imported nursing data: [] General VS: Last Documented: Result Date Time B/P Mean 82.0 12/16 0852 B/P 111/66 12/16 0852 Pulse 95 12/16 0852 Temp 97.9 12/16 0738 Resp 20 12/15 2158 Vital Signs Date Temp Pulse Resp B/P B/P Mean Pulse Ox FiO2 12/15-12/16 97.9-98.4 95-122 20 111-148/56-95 78 .0-115.0 PATIENT WEIGHT: Weight (lb): 265 Weight (oz): 10.51 Weight (kg): 120.500 Dietitian nutrition assessment The data set between the solid lines has been im ported from the dietitian's assessment. BMI Calculated: 45.48 Nutrition related diagnosis: Nutrition diagnosis details: Nutrition problem: Nutrition etiology: Nutrition signs and symptoms: Nutrition prescription: Dietitian name: Assessment completed: Electronically Signed by Janelle Delarosa MD on 11/09 at 0943 RPT #:[id number] END OF REPORT 2022-12-15 22:43:00-00:00 [facility] EMERGENCY PROVIDER REPORT REPORT#:[id number] REPORT STATUS: Signed DATE:12/15/22 TIME: 2242 PATIENT: SUSU LARA UNIT #: [id number] ROOM/BED: AGE: 37 SEX: F PCP PHYS: Janelle Delarosa MD SERVICE AUTHOR: Janie Gonsalves MD * ALL edits or amendments must be made on the [employer]/computer document * See Addendum MARYANNE History Chief complaint: decreased movement, blurr y vision, QUAN, elev BP HPI: 37 yo at 39 1/7 wks w blurry vis ion, QUAN--with some photo sensitivity ( more yesterday), today since 3pm she notes blurry vision--like when you get out of a pool. She checked her BP at home and it was elevated, but she doesn't remember what. She hasn't felt the baby move muc h--even yesterday. She had an NST and BPP--1st in the office and she said it t ook forever even to get a few movements so she was sent here for a BPP which was 05/25. She denies VB, -ROM, ? cramps/few ctxn PMHx neg PSHx tonsils, GB Meds iron, PNV NKDA Soc , no habits FHx--+multiple Allergies Coded Allergies: No Known Allergies (12/14/22) Review of Systems Constitutional: Denies: chills, fever. Skin: Denies: bruising, itching, rash, swelling. Allergy/Immun: Denies: rhinorrhea, sneezing. Eyes: visual loss/blurred. Denies: eye pain, swelling. ENT: Denies: earache, sore throat. Respiratory: Denies: non productive cough, productive cough ( sputum), SOB. Cardiovascular: Denies: chest pain, edema. GI: Denies: constipation, vomiting. : Reports: . Denies: vaginal bleeding, vag inal discharge. Heme: Denies: bleeding, bruising. Neuro: headache. Denies: syncope, unable to speak. Psych: anxiety (only re baby movement). Denies: depress ion, homicidal ideation, suicidal ideation. Objective General VS: Last Documented: Result Date Time B/P Mean 81.0 12/14 1824 B/P 109/64 12/14 1824 Pulse 108 12/14 1824 Temp 98.1 12/14 1713 Resp 18 12/14 1713 Vital Signs Date Temp Pulse Resp B/P B/P Mean Pulse Ox FiO2 12/14 98.1 108-123 18 109-142/64-93 81.0-110.0 PATIENT WEIGHT: Weight (lb): 265 Weight (oz): 10.51 Weight (kg): 120.500 Notes: [id number] Physical Exam HEENT: normocephalic w/o injury, pupils equal, n o scleral icterus Cardiac: regular rate and rhythm Lungs: unlabored breathing Neuro: Exam: alert, oriented x3, normal speech, CNII-X II grossly intact, reflexes equal bilat DTR's (lower extr): normal 1-2+, no clonus Abdomen: gravid, soft, no abnormal tenderness, n o guarding, no rebound tenderness Musculoskeletal: normal insp ection, painless range of motion, no CVA tenderness Genitourinary: no bladder distention, no flank p ain, no urinary catheter Uterine activity: Monitor: toco Frequency (description): irregular Cervical/ exam: Dilatation (cm): 2 (per nurse) Effacement (%): 20 station: - 5 FHR evaluation: Baseline: 150 bpm Notes: initially min BTBV, flat, but in last 10-15 min, mod BTBV, +accels, cat 1 Membranes: Membranes: Intact Lower extremities: Edema: trace Calf tenderness: negative Results Findings/Data: Laboratory Tests: 12/14 12/14 1712 1706 Chemistry Sodium (135 - 145 mEq/L) 136 Potassium (3.5 - 5.0 mEq/L) 4.2 Chloride (100 - 115 mEq/L) 101 Carbon Dioxide (22 - 31 mEq/L) 24 Anion Gap (10 - 20) 15.70 BUN (7 - 18 mg/dL) 8 Creatinine (0.5 - 1.0 mg/dL) 0.6 Glomerular Filtr Rate (>60 ml/min) 119 Glucose (65 - 110 mg/dL) 97 Calcium (8.4 - 10.2 mg/dL) 9.3 Total Bilirubin (0.2 - 1.0 mg/dL) 0.3 AST (15 - 37 units/L) 15 ALT (12 - 78 units/L) 18 Total Alk Phosphatase (46 - 116 units/L) 153 H Total Protein (6.3 - 8.2 gm/dL) 6.5 Albumin (3.4 - 4.8 gm/dL) 2.6 L Hematology WBC (6.5 - 12.3 K/mm3) 11.1 RBC (3.51 - 4.69 M/mm3) 4.87 H Hgb (10.1 - 13.8 g/dL) 11.0 Hct (32.5 - 41.8 %) 34.7 MCV (84.6 - 96.6 fL) 71.3 L MCH (27.3 - 33.9 pg) 22.6 L MCHC (32.0 - 34.2 gm/dL) 31.7 L RDW (12.2 - 16.3 %) 17.0 H Plt Count (134 - 363 K/mm3) 268 MPV (9.2 - 12.7 fL) 10.8 Neut % (Auto) (57.9 - 77.3 %) 70.1 Lymph % (Auto) (14.5 - 29.7 %) 16.5 [place] % (Auto) (3.6 - 10.2 %) 9.7 Eos % (Auto) (0.0 - 3.0 %) 1.1 Baso % (Auto) (0.1 - 0.9 %) 0.4 Neut # (Auto) (K/mm3) 7.8 Lymph # (Auto) (K/mm3) 1.8 [place] # (Auto) (K/mm3) 1.1 Eos # (Auto) (K/mm3) 0.12 Baso # (Auto) (K/mm3) 0.0 Urines Ur Random Creatinine (mg/dL) 157.4 U Random Total Protein (mg/dL) 51.0 Protein/Creatinin Ratio (<200 mg/gcrea) 324.0 H Recent Impressions: ULTRASOUND - DOP VELOCITY UMBILCL ART 12/14 1754 Report Impression - Status: SIGNED Entered: 12/14/20221914 IMPRESSION: S/D ratios as given above PROCEDURE INFORMATION: Exam: US Biophysical Profile Without Non-S tress Test Exam date and time: 12/14/2022 5:44 PM Age: 37 years old Clinical indication: Other: Dfm: 03/[address] office; Lmp or gestational age (in weeks): 39wks; ; Add itional info: 39.0 week iup, bpp 02/22 in office TECHNIQUE: Imaging protocol: US biophysical profile without non-stress testing. COMPARISON: No relevant prior studies available. FINDINGS: Study is limited due to maternal body habitus. heart rate: 158 bpm presentation: Cephalic Placenta: Anterior grade 3 placenta without prev ia. Amniotic fluid index: YAW is 13.6 cm. Cervix: Not well seen BIOPHYSICAL PROFILE: breathing movement (BPP): 2/2 body movement (BPP): 2/2 tone (BPP): 2/2 Amniotic fluid (BPP): 2/2 Biophysical profile score (BPP): 05/25 IMPRESSION: Biophysical profile score is 8 out of 8. Impression By: Nadira Solorio MD ULTRASOUND - US FET BIO PH MD W/O NST 12/14 1765 Report Impression - Status: SIGNED Entered: 12/14/20221914 IMPRESSION: S/D ratios as given above PROCEDURE INFORMATION: Exam: US Biophysical Profile Without Non-S tress Test Exam date and time: 12/14/2022 5:44 PM Age: 37 years old Clinical indication: Other: Dfm: 03/25 [address]s office; Lmp or gestational age (in weeks): 39wks; ; Add itional info: 39.0 week iup, bpp 02/22 in office TECHNIQUE: Imaging protocol: US biophysical profile without non-stress testing. COMPARISON: No relevant prior studies available. FINDINGS: Study is limited due to maternal body habitus. heart rate: 158 bpm presentation: Cephalic Placenta: Anterior grade 3 placenta without prev ia. Amniotic fluid index: YAW is 13.6 cm. Cervix: Not well seen BIOPHYSICAL PROFILE: breathing movement (BPP): 2/2 body movement (BPP): 2/2 tone (BPP): 2/2 Amniotic fluid (BPP): 2/2 Biophysical profile score (BPP): 8/8 IMPRESSION: Biophysical profile score is 8 out of 8. Impression By: Nadira Solorio MD Diagnosis, Assessment Plan Diagnosis, Assessment Plan Problem List/A P: 1. 39 weeks gestation of 2. Decreased movement 3. Preeclampsia Free Text A P: getting labs, IV placed and bolus started contacting primary or covering ob Electronically Signed by Janie Gonsalves MD on at 2253 Addendum 1: 12/15/222303 by Janie Gonsalves MD Patient Addendum Addendum brief bedside ultrasound done baby is VTX, pt ob petey--somewhat difficult scan Pt states she is GBS negative and she wants her tubes tied d/w Dr Jay, agrees w 48 hr s of decreased FM and pr/cr ratio of >360, to induce pt Electronically Signed by Janie Gonsalves MD on at 2304 RPT #:[id number] END OF REPORT
[2023-04-30] MEDS ORDERED: ONDANSETRON 4 MG/2 ML VIAL ONE (16:51)
[2023-04-30] MEDS ORDERED: NA CHLORIDE 0.9% 1,000 ML ONE (16:51)
[2023-04-30] MEDS ORDERED: FAMOTIDINE 20 MG/2 ML VIAL IV ONE (16:51)
[2023-04-30] MEDS ORDERED: MORPHINE 4 MG/ML SYR ONE ×2 (16:51→19:40)
[2023-04-30 17:26] LABS: Hematocrit 35.8 % (36.0-45.0); Lymphocytes % 12.7 % (15.3-44.8); MCV 68.1 fL (80-100); MPV 7.9 fL (7.6-11.3); RBC Red Blood Cell Count 5.26 M/uL (3.86-4.86)
[2023-04-30 17:47] LABS: Albumin 3.5 g/dL (3.4-5.0); Bilirubin Total 0.3 mg/dL (0.2-1.0)
[2023-04-30 17:49] LABS: Potassium 4.1 mEq/L (3.5-5.1)
--- NOTE | 2023-04-30 18:27 | RAD REPORT ---
EXAM DESCRIPTION: CTAbdomen Pelvis W Contrast - 04/30/2023 6:09 pm CLINICAL HISTORY: ABD PAIN COMPARISON: No comparisons TECHNIQUE: CT of the abdomen and pelvis was performed. All CT scans are performed using dose optimization technique as appropriate and may include automated exposure control or mA/KV adjustment according to patient size. FINDINGS: Lower chest: No acute abnormality. Liver: No acute abnormality or suspicious lesions. Biliary: No biliary ductal dilatation. Cholecystectomy Stomach: No significant focal abnormality. Duodenum: No significant focal abnormality. Pancreas: No significant abnormality. Spleen: No significant abnormality. Adrenal: No suspicious lesions. Kidney/ureter: No hydronephrosis. No renal calculi. Retroperitoneum: No retroperitoneal adenopathy. Vascular: No aneurysm. Bowel: No significant focal abnormality. Appendectomy. Peritoneum: No ascites or free air. Bladder: Grossly unremarkable. Reproductive: No adnexal masses. Tubal ligation clips. Bones: No acute fracture. Other: n/a IMPRESSION: No acute intra-abdominal or pelvic finding. Normal appendix. Cholecystectomy.
[2023-04-30 19:33] LABS: Specific Gravity 1.026 (1.005-1.030)
[2023-04-30 19:36] LABS: Specific Gravity 1.025 (1.005-1.030); Urine Bacteria <20 /HPF (<20); Urine Bilirubin NEGATIVE (Negative); Urine Blood 3+ (OVER) (Negative); Urine Clarity Extremely Turbid (Clear); Urine Color Yellow (Yellow); Urine Glucose NEGATIVE (Negative); Urine Mucus 2+ /HPF (None Seen); Urine Protein 1+ (Negative); Urine RBC >50 /HPF (None Seen); Urine Urobilinogen Normal (Normal)
--- NOTE | 2023-04-30 21:17 | RAD REPORT ---
EXAM DESCRIPTION: US - Transvaginal Study Probe - 04/30/2023 8:36 pm CLINICAL HISTORY: ABD PAIN Pelvic pain. COMPARISON: Abdomen Pelvis W Contrast dated 04/30/2023 FINDINGS: The uterus is normal in size, shape and echotexture. The uterus measures 12.5 cm. Hypoecho ic structure near the cervix measuring 4.1 x 3.1 x 3.3 cm. Small volume of fluid in the cervix. The endometrial stripe measures 16 mm which is within normal limits for age. Both ovaries are normal in size, shape and echotexture. The right ovary measures 3.2 x 2.4 x 2.9 cm with volume of 11.4 cc. The left ovary measures 2.3 x 1.9 x 2.1 cm with volume of 4.9 cc. No ovarian or parovarian lesions. Normal Doppler blood flow was demonstrated to both ovaries. No significant pelvic ascites. IMPRESSION: Bilateral ovarian blood flow. Hypoechoic mass near the cervix could represent a low-lying subserosal uterine fibroid.Suggest outpat ient gynecology follow-up.
--- NOTE | 2023-04-30 21:42 | EDPHYS ---
Physician Documentation [facility] Name: Susu Wong Age: 37 yrs Sex: Female : 1985 Arrival Date: 04/30/2023 Time: 16:16 Bed 13 Private MD: ED Physician Harvinder Small HPI: 04/30 16:34 This 37 yrs old Female presents to ER via Wheelchair with complaints of sb4 Abdominal Cramping. 16:34 Onset: The symptoms/episode began/occurred 3 hour(s) ago. 37 year old female pmh of sb4 anemia and uncomplicated 4 months ago presents with sudden onset of RLQ abdominal cramping. she states it began about 3 hours ago and has caused her to vomit twice. she also states she has some vaginal bleeding and is not sure if it is her menstrual cycle or not. Historical: - Allergies: 16:22 No Known Allergies; aa5 - PMHx: 16:22 Anemia; aa5 - PSHx: 16:22 Cholecystectomy; aa5 16:23 section; tubal ligation; Tonsillectomy; aa5 - Immunization history:: Adult Immunizations unknown. - Social history:: Smoking status: Patient denies any tobacco usage or history of. ROS: 16:34 Constitutional: Negative for fever, chills, and weight loss, Eyes: Negative for injury, sb4 pain, redness, and discharge, Cardiovascular: Negative for chest pain, palpitations, and edema, Respiratory: Negative for shortness of breath, cough, wheezing, and pleuritic chest pain, Back: Negative for injury and pain, MS/Extremity: Negative for injury and deformity, Skin: Negative for injury, rash, and discoloration. 16:34 Respiratory: 16:34 Abdomen/GI: Positive for abdominal pain, nausea and vomiting, abdominal cramps, Negative for diarrhea, hematemesis, rectal pain. 16:34 All other systems are negative. Exam: 16:34 Head/Face: Normocephalic, atraumatic. Eyes: Extra-ocular motions intact. Periorbital sb4 areas with no swelling, redness, or edema. Cardiovascular: Regular rate and rhythm with a normal S1 and S2. Respiratory: Lungs have equal breath sounds bilaterally, clear to auscultation and percussion. No rales, rhonchi or wheezes noted. No increased work of breathing, no retractions or nasal flaring. Skin: Warm, dry with normal turgor. Normal color with no rashes, no lesions, and no evidence of cellulitis. MS/ Extremity: Pulses equal, no cyanosis. Neurovascular intact. Full, normal range of motion. 16:34 Constitutional: The patient appears alert, awake, in obvious pain, uncomfortable. 16:34 Abdomen/GI: Inspection: abdomen appears normal, Bowel sounds: normal, Palpation: soft, in all quadrants, moderate abdominal tenderness, in the right lower quadrant, voluntary guarding, is elicited in the right lower quadrant. Vital Signs: 16:22 BP 139 / 63; Pulse 95; Resp 20 S; Temp 98(TE); Pulse Ox 100% on R/A; Weight 99.79 kg aa5 (R); Height 5 ft. 3 in. (R); 17:15 BP 133 / 73; Pulse 95; Resp 20; Pulse Ox 99% on R/A; eh3 18:15 BP 144 / 77; Pulse 97; Resp 18; Pulse Ox 97% on R/A; rv 19:15 BP 127 / 65; Pulse 89; Resp 18; Pulse Ox 96% on R/A; rv 20:15 BP 106 / 73; Pulse 103; Resp 18; Pulse Ox 96% on R/A; eh3 22:07 BP 101 / 80; Pulse 86; Resp 16; Temp 98; Pulse Ox 99% on R/A; rv 16:22 Body Mass Index 38.97 (99.79 kg, 160.02 cm) aa5 MDM: 16:22 Patient medically screened. sb4 16:34 Differential Diagnosis appendicitis, ovarian torsion, ectopic , ovarian cyst, sb4 nonspecific abd pain, dysmenorrhea. 21:44 Data reviewed: vital signs, nurses notes, lab test result(s), radiologic studies, and sb4 as a result, I will discharge patient. Consideration of Admission/Observation Escalation of care including admission/observation considered. Historians other than the Patient: Spouse/Significant Other: . Counseling: I had a detailed discussion with the patient and/or guardian regarding: the historical points, exam findings, and any diagnostic results supporting the discharge/admit diagnosis, lab results, radiology results, the need for outpatient follow up, an OB/Gyne specialist, to return to the emergency department if symptoms worsen or persist or if there are any questions or concerns that arise at home. Medication response: morphine markedly relieved the patient's pain. Symptoms have improved. Special discussion: Based on the patient's Hx, exam, and Dx evaluation, there is no indication for emergent surgery or inpatient Tx. It is understood by the patient/guardian that if the Sx's persist or worsen they need to return immediately for re-evaluation. 04/30 16:34 Order name: CBC with Diff; Complete Time: 17:38 sb4 04/30 16:34 Order name: CMP; Complete Time: 17:50 sb4 04/30 16:34 Order name: Lipase; Complete Time: 17:50 sb4 04/30 16:34 Order name: Test, Urine; Complete Time: 19:39 sb4 04/30 16:34 Order name: Urinalysis w/ reflexes; Complete Time: 19:37 sb4 04/30 16:34 Order name: CT Abd/Pelvis - IV Contrast Only; Complete Time: 18:31 sb4 04/30 19:39 Order name: Transvaginal Study (probe); Complete Time: 21:24 sb4 04/30 16:34 Order name: IV Saline Lock; Complete Time: 17:24 sb4 04/30 16:34 Order name: Labs collected and sent; Complete Time: 17:24 sb4 Administered Medications: 17:00 Drug: NS 0.9% IV 1000 ml Route: IV; Rate: 1 bolus; Site: right antecubital; 3 22:07 Follow up: Response: No adverse reaction; IV Status: Completed infusion; IV Intake: rv 1000ml 17:00 Drug: Famotidine IVP 20 mg Route: IVP; Site: right antecubital; eh3 22:07 Follow up: Response: No adverse reaction; Marked relief of symptoms rv 17:00 Drug: Ondansetron IVP 4 mg Route: IVP; Site: right antecubital; eh3 17:00 Drug: morphine IVP or IV 4 mg Route: IVP; Infused Over: 4 mins; Site: right antecubital;eh3 19:47 Drug: morphine IVP or IV 4 mg Route: IVP; Infused Over: 4 mins; Site: left antecubital; rv 22:07 Follow up: Response: No adverse reaction; Marked relief of symptoms rv 21:55 Drug: Rocephin IV 1 grams Route: IV; Rate: bolus; Site: right antecubital; rv 22:07 Follow up: Response: Medication administered at discharge.; IV Status: Completed rv infusion Disposition Summary: 04/30/23 21:41 Discharge Ordered Location: Home sb4 Problem: new sb4 Symptoms: have improved sb4 Condition: Stable sb4 Diagnosis - Lower abdominal pain, unspecified sb4 - Primary dysmenorrhea sb4 - Anemia, unspecified sb4 Followup: sb4 - With: Peyton Downey MD - When: 2 - 3 days - Reason: Further diagnostic work-up, Recheck today's complaints, Re-evaluation by your physician Discharge Instructions: - Discharge Summary Sheet eh3 - Abdominal Pain, Adult sb4 - Anemia sb4 - Dysmenorrhea sb4 - Pain Without a Known Cause sb4 Forms: - SBAR form eh3 - Medication Reconciliation Form sb4 - Thank You Letter sb4 - Antibiotic Education sb4 - Prescription Opioid Use sb4 - Patient Portal Instructions sb4 Prescriptions: - Metronidazole 500 mg Oral Tablet - take 1 tablet by ORAL route every 8 hours; 30 tablet; Refills: 0, Product sb4 Selection Permitted - Tramadol 50 mg Oral Tablet - take 1 tablet by ORAL route every 8 hours as needed; 12 tablet; Refills: 0, sb4 Product Selection Permitted Signatures: Dispatcher [employer] Melina David RN RN aa5 Oziel Diaz RN RN Manasa Griffin RN RN eh3 Maryse Mcmahan PA-C PA-C sb4 Corrections: (The following items were deleted from the chart) 16:23 16:22 PMHx: None; aaMatt aa5
--- NOTE | 2023-04-30 21:42 | ER ---
Nurse's Notes [facility] Name: Susu Wong Age: 37 yrs Sex: Female : 1985 Arrival Date: 04/30/2023 Time: 16:16 Bed 13 Private MD: Diagnosis: Lower abdominal pain, unspecified;Primary dysmenorrhea;Anemia, unspecified Presentation: 04/30 16:22 Chief complaint: Patient states: lower abd cramping that began 2 hrs [employer], reports she aa5 started her menstrual period today. 16:22 Coronavirus screen: At this time, the client does not indicate any symptoms associated aa5 with coronavirus-19. Ebola Screen: Patient denies travel to an Ebola-affected area in the 21 days before illness onset. Initial Sepsis Screen: Does the patient meet any 2 criteria? HR > 90 bpm. Does the patient have a suspected source of infection? No. Patient's initial sepsis screen is negative. Risk Assessment: Do you want to hurt yourself or someone else? Patient reports no desire to harm self or others. Onset of symptoms was April 30, 2023. 16:22 Acuity: [place] 3 aa5 16:22 Method Of Arrival: Wheelchair aa5 Historical: - Allergies: 16:22 No Known Allergies; aa5 - PMHx: 16:22 Anemia; aa5 - PSHx: 16:22 Cholecystectomy; aa5 16:23 section; tubal ligation; Tonsillectomy; aa5 - Immunization history:: Adult Immunizations unknown. - Social history:: Smoking status: Patient denies any tobacco usage or history of. Screenin:30 [facility] ED Fall Risk Assessment (Adult) Score/Fall Risk Level 0 - 2 = Low Risk. Abuse eh3 screen: Denies threats or abuse. Denies injuries from another. Nutritional screening: No deficits noted. Tuberculosis screening: No symptoms or risk factors identified. Assessment: 16:30 General: Appears distressed, uncomfortable, Behavior is cooperative, anxious, restless. eh3 Pain: Complains of pain in right lower quadrant Pain radiates to right leg and left leg. Neuro: Level of Consciousness is awake, alert, obeys commands, Oriented to person, place, time, situation. Cardiovascular: Capillary refill < 3 seconds Patient's skin is warm and dry. Respiratory: Airway is patent Respiratory effort is even, unlabored, Respiratory pattern is regular, symmetrical. GI: Abdomen is round non-distended, Bowel sounds present X 4 quads. Abd is soft X 4 quads Abdomen is tender to palpation in right lower quadrant. Derm: Skin is intact, is healthy with good turgor, Skin is pink, warm \T\ dry. Musculoskeletal: Circulation, motion, and sensation intact. Range of motion: intact in all extremities. 17:15 Reassessment: Patient appears in no apparent distress at this time. Patient and/or 3 family updated on plan of care and expected duration. Pain level reassessed. Patient is alert, oriented x 3, equal unlabored respirations, skin warm/dry/pink. 18:15 Reassessment: Patient appears in no apparent distress at this time. Patient and/or 3 family updated on plan of care and expected duration. Pain level reassessed. Patient is alert, oriented x 3, equal unlabored respirations, skin warm/dry/pink. 19:15 Reassessment: Patient appears in no apparent distress at this time. Patient and/or [facility] family updated on plan of care and expected duration. Pain level reassessed. Patient is alert, oriented x 3, equal unlabored respirations, skin warm/dry/pink. 20:15 Reassessment: Patient appears in no apparent distress at this time. Patient and/or 3 family updated on plan of care and expected duration. Pain level reassessed. Patient is alert, oriented x 3, equal unlabored respirations, skin warm/dry/pink. Vital Signs: 16:22 BP 139 / 63; Pulse 95; Resp 20 S; Temp 98(TE); Pulse Ox 100% on R/A; Weight 99.79 kg aa5 (R); Height 5 ft. 3 in. (R); 17:15 BP 133 / 73; Pulse 95; Resp 20; Pulse Ox 99% on R/A; eh3 18:15 BP 144 / 77; Pulse 97; Resp 18; Pulse Ox 97% on R/A; rv 19:15 BP 127 / 65; Pulse 89; Resp 18; Pulse Ox 96% on R/A; rv 20:15 BP 106 / 73; Pulse 103; Resp 18; Pulse Ox 96% on R/A; eh3 22:07 BP 101 / 80; Pulse 86; Resp 16; Temp 98; Pulse Ox 99% on R/A; rv 16:22 Body Mass Index 38.97 (99.79 kg, 160.02 cm) aa5 ED Course: 16:17 Patient arrived in ED. ts1 16:22 Mary[facility] Mcmahan [facility] sb4 16:22 Harvinder Small MD is Attending Physician. sb4 16:23 Arm band placed on. aa5 16:24 Triage completed. aa5 16:30 Manasa Cortes, FAVIOLA is Primary Nurse. eh3 16:30 Patient has correct armband on for positive identification. Bed in low position. Call eh3 light in reach. Side rails up X2. Adult w/ patient. Provided Education on: N/A. Pulse ox on. NIBP on. Door closed. Noise minimized. Lights dimmed. Warm blanket given. 16:30 Inserted saline lock: 22 gauge in right antecubital area, using aseptic technique. eh3 Blood collected. 18:11 CT Abd/Pelvis - IV Contrast Only In Process Unspecified. EDMS 20:37 Transvaginal Study (probe) In Process Unspecified. EDMS 21:05 Report given to FAVIOLA Ludwig. eh3 21:40 Peyton Downey MD is Referral Physician. sb4 22:08 No provider procedures requiring assistance completed. IV discontinued, intact, rv bleeding controlled, No redness/swelling at site. Pressure dressing applied. Administered Medications: 17:00 Drug: NS 0.9% IV 1000 ml Route: IV; Rate: 1 bolus; Site: right antecubital; eh3 22:07 Follow up: Response: No adverse reaction; IV Status: Completed infusion; IV Intake: rv 1000ml 17:00 Drug: Famotidine IVP 20 mg Route: IVP; Site: right antecubital; eh3 22:07 Follow up: Response: No adverse reaction; Marked relief of symptoms rv 17:00 Drug: Ondansetron IVP 4 mg Route: IVP; Site: right antecubital; eh3 17:00 Drug: morphine IVP or IV 4 mg Route: IVP; Infused Over: 4 mins; Site: right antecubital;eh3 19:47 Drug: morphine IVP or IV 4 mg Route: IVP; Infused Over: 4 mins; Site: left antecubital; rv 22:07 Follow up: Response: No adverse reaction; Marked relief of symptoms rv 21:55 Drug: Rocephin IV 1 grams Route: IV; Rate: bolus; Site: right antecubital; rv 22:07 Follow up: Response: Medication administered at discharge.; IV Status: Completed rv infusion Medication: 22:08 VIS not applicable for this client. rv Intake: 22:07 IV: 1000ml; Total: 1000ml. rv Outcome: 21:41 Discharge ordered by MD. [email or web address] 22:08 Discharged to home ambulatory, with family. rv 22:08 Condition: good 22:08 Discharge instructions given to patient, Instructed on discharge instructions, follow up and referral plans. medication usage, Demonstrated understanding of instructions, follow-up care, medications, Prescriptions given X 2. 22:08 Patient left the ED. rv Signatures: Dispatcher [employer] EDMS Melina Garcia, RN RN aa5 Oziel Diaz RN RN rv Manasa Cortes, FAVIOLA RN [email or web address] Maryse Mcmahan, PAJeannie PAJeannie [email or web address] Heather Bird PAS PAS ts1 Corrections: (The following items were deleted from the chart) 16:23 16:22 PMHx: None; aa5 aa5 20:25 16:30 General: Appears distressed, uncomfortable, eh3 3 20:26 16:36 Manasa Cortes, RN is Primary Nurse. eh3 3 20:26 18:45 Reassessment: Patient appears in no apparent distress at this time. Patient eh3 and/or family updated on plan of care and expected duration. Pain level reassessed. Patient is alert, oriented x 3, equal unlabored respirations, skin warm/dry/pink. eh3
[2023-04-30] MEDS ORDERED: CEFTRIAXONE 1000 MG/VIAL ONE (22:00)
[2023-05-01 01:21] VITALS: TEMP 98
[2023-05-01 01:29] VITALS: BP 101/80; O2SAT 99
== END 2023-04-30 22:08 | disposition home or self-care (01) ==
LOC: ER 16:16
DX: N94.4 Primary dysmenorrhea (principal); D64.9 Anemia, unspecified
CPT/HCPCS: 36415; 74177; 76830; 80053; 81001; 81025; 83690; 85025; 99284; J0696; J2405; J7030; Q9967